=== PATIENT | female | born 1980 | race Caucasian/White ===

== ENCOUNTER 2018-05-18 19:39 | Outpatient (REF) | payer BC, SELFPAY ==
[2018-05-18 21:32] LABS: ALT 40 U/L (12-78); AST 18 U/L (15-37); Albumin 3.5 g/dL (3.4-5.0); Alkaline Phosphatase 92 U/L (46-116); Anion Gap 10.5 mmol/L (3-11); BUN 10 mg/dL (7-18); Bilirubin, Total 0.4 mg/dL (0.2-1.0); CO2 26.5 mmol/L (21.0-32.0); CREATININE 0.66 mg/dL (0.55-1.02); Calcium 9.5 mg/dL (8.5-10.1); Chloride 103 mmol/L (98-107); Glucose 84 mg/dL (70-100); Potassium 4.3 mmol/L (3.5-5.1); Sodium 140 mmol/L (136-145); TSH (W/Ref FT4) 0.63 uIU/mL (0.358-3.74); Total Protein 7.2 g/dL (6.4-8.2)
== END 2018-05-18 19:59 ==
LOC: NCHCN 19:39
PROVIDERS: Visit Provider Nurse Practitioner Family
DX: R60.9 Edema, unspecified (principal)
CPT/HCPCS: 80053; 84443

== ENCOUNTER 2022-12-13 19:57 | Outpatient (REF) | payer OTHER, SELFPAY ==
[2022-12-13 18:53] LABS: Abs Immature Grans 0.03 10^3/uL (0.0-0.06); Absolute Basophil Count 0.06 10^3/uL (0.0-0.2); Absolute Eosinophil Count 0.22 10^3/uL (0.0-0.7); Absolute Monocyte Count 0.64 10^3/uL (0.1-0.8); Absolute Neutrophil Count 5.89 10^3/uL (1.2-6.7); Basophils % 0.6; Eosinophils % 2.1; HCT 39.2 % (36.0-46.0); HGB 12.3 g/dL (11.2-15.7); Immature Grans % 0.3; Lymphocytes % 33.2; MCH 26.8 pg (27.0-33.0); MCHC 31.4 % (32.0-36.0); MCV 85 fL (80-95); MPV 9.5 fL (8.0-11.0); Monocytes % 6.3; Neutrophils % 57.5; Platelet Count 485 10^3/uL (130-400); RBC 4.59 10^6/uL (3.93-5.22); RDW 14.6 % (11.7-14.6); RDW-SD 45.9 fL; WBC 10.24 10^3/uL (4.4-10.8)
[2022-12-13 19:30] LABS: ALT 38 U/L (14-59); AST 28 U/L (15-37); Albumin 3.2 g/dL (3.4-5.0); Alkaline Phosphatase 110 U/L (46-116); Anion Gap 7.1 mmol/L (3-11); BUN 10 mg/dL (7-18); Bilirubin, Total 0.3 mg/dL (0.2-1.0); CO2 27.9 mmol/L (21.0-32.0); CREATININE 0.6 mg/dL (0.55-1.02); Calcium 9.2 mg/dL (8.5-10.1); Chloride 106 mmol/L (98-107); Estimated GFR 115.57 (mL/min/1.73m2); Glucose 75 mg/dL (74-106); Sodium 141 mmol/L (136-145); Total Protein 7.3 g/dL (6.4-8.2)
== END 2022-12-13 19:58 | disposition home or self-care (01) ==
LOC: NCHCN 19:57
PROVIDERS: Visit Provider Nurse Practitioner Family
DX: R51.9 Headache, unspecified (principal)
CPT/HCPCS: 80053; 85025

== ENCOUNTER 2024-03-05 14:50 | Outpatient (REF) | payer OTHER, SELFPAY ==
--- OUTSIDE RECORDS SUMMARY | 2024-03-05 14:53 | XMS_ITS | Clinical Summary ---
Author Organization [facility] Address [address] [place] [address] Care Team Providers Care Mallet Cutter Name Role Phone Gricelda Roth NP Primary Care Provider [phone] Encounters Date Type Department Care Team Description 01/23/2024 Lab Requisition [facility] Pathology & Laboratory Medicine - [address] [address] Leandro Gore MD Encounter for screening for human papillomavirus (HPV); Encounter for gynecological examination (general) (routine) without abnormal findings from Last 3 Months Social History Tobacco Use Types Packs/Day Years Used Date Smoking Tobacco: Never Assessed Sex and Gender Information Value Date Recorded Sex Assigned at Not on file Gender Identity Not on file Sexual Orientation Not on file Plan of Treatment Health Maintenance Due Date Last Done Comments Hepatitis C Screen 1981 Hepatitis B Vaccine (1 of 3 - 19+ 3-dose series) 07/09 COVID-19 Vaccine ( season) 2024 Procedures Procedure Name Priority Date/Time Associated Diagnosis Comments PAP TEST Today 01/23/2024 17:09 EDT Encounter for screening for human papillomavirus (HPV) Encounter for gynecological examination (general) (routine) without abnormal findings HPV DNA DETECTION WITH GENOTYPING, PCR Today 01/23/2024 17:09 EDT Encounter for screening for human papillomavirus (HPV) Encounter for gynecological examination (general) (routine) without abnormal findings from Last 3 Months Results * PAP TEST (01/23/2024 17:09 EDT) Specimens A. Cervix and/or Endocervix , ThinPrep Imaging System with Manual Evaluation 02/05/2024 15:14 [facility] Specimen Adequacy Satisfactory for Evaluation - transformation zone component present 02/05/2024 15:14 [facility] General Categorization Negative for intraepithelial lesion or malignancy 02/05/2024 15:14 [facility] Attestation . 02/05/2024 15:14 [facility] at 1514 Clinical History SEE BELOW 02/05/20 15:14 [facility] Performing Lab [facility] 02/05/2024 15:14 [facility] Scanned Images 02/05/2024 15:14 [facility] HPV High Risk type 16, PCR Negative 02/05/2024 15:14 [facility] HPV High Risk type 18, PCR Negative 02/05/2024 15:14 [facility] HPV Other High Risk Types, PCR Negative The following Other High Risk HPV types were not detected: 31,33, 35, 39, 45, 51, 52, 56, 58, 59, 66 and 68. 02/05/2024 15:14 [facility] Pap Test CERVIX UTERI STRUCTURE / Unknown 01/23/2024 17:09 EDT 01/26/2024 10:24 EDT Leandro Gore MD PATHOLOGY ORDERABLES [facility] [address] [place] [address] * HPV DNA DETECTION WITH GENOTYPING, PCR (01/23/2024 17:09 EDT) HPV High Risk type 16, PCR Negative Negative 02/05/2024 15:14 [facility] HPV High Risk type 18, PCR Negative Negative 02/05/2024 15:14 [facility] HPV other High Risk types, PCR Negative Negative 02/05/2024 15:14 EDT [facility] Comment: The following Other High Risk HPV types were not detected: ??31,33, 35, 39, 45, 51, 52, 56, 58, 59, 66 and 68. Pap Test CERVIX UTERI STRUCTURE / Unknown 01/23/2024 17:09 EDT 02/04/2024 13:09 EDT Leandro Gore MD MICROBIOLOGY - GENER AL ORDERABLES Performing Organization Address City/State/[facility] Co de Phone Number [facility] [address] [place] [address] from Last 3 Months Care Teams Mallet Cutter Relationship Specialty Start Date End Date Gricelda Roth, BREANA [address] [place] [phone] PCP - General 09/08/12
--- OUTSIDE RECORDS SUMMARY | 2024-03-05 14:53 | XMS_ITS | Encounter Summary ---
Author Organization [place] [address] Care Team Providers Care Precision Filer Hand Name Role Phone Geovani Harden [facility] Primary Care Provider [phone] Reason for Referral * Consultation (Routine) - Closed Specialty Diagnoses / Procedures Referred By Jessica romero Referred To Contact Dermatology Diagnoses Nevus, atypical Screening for skin cancer Sherrie Larson APRN [address] [place] [address] [facility] [address] [place] [address] Referral ID Status Reason Start Date Expiration Date V isits Requested Visits Authorized [id number] Closed Consult, Test & Treat PCP Updated and/or Approved 09/03/2022 09/03/2023 6 6 Encounter Details Date Type Department Care Team (Latest Contact Info) Description 09/03/2022 Transcribe Orders eDH Incoming Referrals [phone] Sherrie Larson APRN [address] [place], [place] [id number] Nevus, atypical; Screening for skin cancer Social History Tobacco Use Types Packs/Day Years Used Date Smoking Tobacco: Never Assessed Sex and Gender Information Value Date Recorded Sex Assigned at Not on file Gender Identity Not on file Sexual Orientation Not on file documented as of this encounter Plan of Treatment Scheduled Referrals Name Type Priority Associated Diagnoses Order Schedule Referral to Dermatology Outpatient Referral Routine Nevus, atypical Screening for skin cancer Ordered: 09/03/2022 documented as of this encounter Visit Diagnoses Diagnosis Nevus, atypical Benign neoplasm of skin, site unspecified Screening for skin cancer Screening for malignant neoplasm of the skin documented in this encounter Care Teams Precision Filer Hand Relationship Specialty Start Date End Date Geovani Harden DNP [address] [place] [id number] PCP - General Family Medicine 09/03/22 documented as of this encounter
--- OUTSIDE RECORDS SUMMARY | 2024-03-05 14:53 | XMS_ITS | Continuity of Care Document ---
Author Organization [facility] Address [address] [place] [address] Care Team Providers Care Wheat Buyer Name Role Phone Sherrie Larson Primary Care Physician Leandro Gore Primary Care Physician Encounter [facility] Date(s): 03/03/24 - 03/03/[address] [phone] [place] Encounter Diagnosis Screening mammogram for breast cancer(Discharge Diagnosis) - 03/03/24 Discharge Disposition: Home or Self Care Attending Physician: Leandro Gore MD Admitting Physician: Leandro Gore MD Referring Physician: Leandro Gore MD Allergies, Adverse Reactions, Alerts Substance Criticality Severity Reaction Reaction Severity Status erythromycin Unable to assess criticality Unknown Active Assessment and Plan Future Appointments Immunizations Given and Recorded Vaccine Date Status Refusal Reason influenza virus vaccine, inactivated 04/24/22 Give n influenza virus vaccine, inactivated 01/24/11 Gabriel rded influenza virus vaccine, inactivated 06/25/10 Gabriel rded influenza virus vaccine, inactivated 03/07/08 Gabriel rded influenza virus vaccine, live 03/23/20 Recorded influenza virus vaccine, live 04/24/17 Recorded influenza virus vaccine, live 03/14/16 Recorded Medications escitalopram 10 mg oral tablet 10 mg = 1 tab, Oral, Daily, # 30 tab, 0 Refill(s) Start Date: 11/02/21 Status: Ordered Jaimiess oral tablet 1 tab, Oral, Daily, # 91 tab, 3 Refill(s), Pharmacy: [id number] Start Date: 12/01/23 Status: Ordered Procedures Procedure Date Related Diagnosis Body Site Status Pap Due - 01/2029 1 01/22/24 Co mpleted Colposcopy 2 2004 Completed Tonsillectomy 2004 Completed 1Pap Due - 01/2029 2005 - ABN 10/01/06 - WNL 11/04/07 - WNL 07/20/08 - WNL 06/25/10 - WNL 07/02/12 - Neg/Neg 04/24/17 - Neg/Neg 11/02/21 - Neg/Pos (5 year risk of CIN3+ is 2.25%??) 12/11/22 - Neg/Neg (5 year risk of CIN3+ is 0.90%??) 01/23/24 - Neg/Neg 2in [place] Social History Social History Type Response Tobacco Never tobacco user T obacco Use:. Sex Female Sex Representation Female (finding) Patient Care team information Care Team Personnel Name: Sherrie Larson FOREIGN SERVICE OFFICER Position: No Access Member Role: Primary Care Physician Address: [address] Name: Leandro Gore MD Position: Physician - Women's Health Member Role: Primary Care Physician Address: [address] Care Team Related Persons Name: KATHLEEN FERNANDEZ Name: JOHN PAUL SMITH Insurance Providers Guarantor name: TRUDI FERNANDEZ Health Plan Information #: 1 Payer: [facility] Member Number: [id number] Policy Number: NA Health Plan Information #: 2 Payer: [facility] Member Number: [id number] Policy Number: NA
--- OUTSIDE RECORDS SUMMARY | 2024-03-05 14:53 | XMS_ITS | Continuity of Care Document ---
Author Organization [facility] Address [address] [place] [address] Care Team Providers Care Director Human Services Name Role Phone Fina CLARENCE Geovani Whitney Primary Care Physician [phone] Leandro Gore Primary Care Physician [phone] Encounter [place] Date(s): 12/11/22 - 12/11/[address] [address] Discharge Disposition: Home Allergies, Adverse Reactions, Alerts Substance Reaction Severity Status erythromycin Unknown Active Assessment and Plan Future Appointments Future Scheduled Tests Radiology* MG Mammo Screening Bilateral w/ Efraín 12/11/22 Immunizations Given and Recorded Vaccine Date Status [...] Daily, # 91 tab, 3 Refill(s), Pharmacy: [id number] Start Date: 12/11/22 Status: Ordered Procedures Procedure Date Related Diagnosis Body Site Status Due 10/2022 1, 2, 3, 4 04/23/17 Co mpleted Tonsillectomy 2005 Completed 1Pap Due 04/2022 04/24/2017 Neg/Neg 07/02/2012 Neg/Neg 06/25/2010 WNL 07/20/2008 WNL 11/04/2007 WNL 10/01/2006 WNL 2006 ABN 2Due 10/2026 11/02/2021/ Pos/Neg 4Due 10/2022 11/02/2022 Pos/Neg Social History Social History Type Response Tobacco Never tobacco user T obacco Use:. Sex Female Patient Care team information Care Team Personnel Name: Geovani Reid DNP Position: No Access Member Role: Primary Care Physician Address: Address: [address] [place] [id number] Name: Leandro Gore MD Position: Physician - Women's Health Member Role: Primary Care Physician Address: Address: [address] [place], [place] [address] Care Team Related Persons Name: ALESSANDRO FERNANDEZ Address: Home Name: EMERSON PETTY Address: Home Name: JOHN PAUL SMITH Address: Home [address] [place] [phone]
--- OUTSIDE RECORDS SUMMARY | 2024-03-05 14:53 | XMS_ITS | Continuity of Care Document ---
Author Organization [facility] Address [address] [place] [address] Care Team Providers Care Respiratory Coordinator Name Role Phone Fina CLARENCEGeovani Ailynabe Primary Care Physician [phone] Leandro Gore Primary Care Physician Encounter [place] Date(s): 12/11/22 - 12/11/[address] [address] Discharge Disposition: Home or Self Care Attending Physician: Leandro Gore MD Admitting Physician: Leandro Gore MD Referring Physician: Leandro Gore MD Allergies, Adverse Reactions, Alerts Substance Reaction Severity Status erythromycin Unknown Active Assessment and Plan Future Appointments Diagnostic Tests Pending * PAP Test [facility] 12/11/22 Future Scheduled Tests Radiology* MG Mammo Screening [...] Daily, # 91 tab, 3 Refill(s), Pharmacy: [id number] Start Date: 12/11/22 Status: Ordered Procedures Procedure Date Related Diagnosis Body Site Status Due 10/2022 1, 2, 3, 4 04/23/17 Co mpleted Tonsillectomy 2005 Completed 1Pap Due 04/2022 04/24/2017 Neg/Neg 07/02/2012 Neg/Neg 06/25/2010 WNL 07/20/2008 WNL 11/04/2007 WNL 10/01/2006 WNL 2006 ABN 2Due 10/2026 11/02/2021 3Due 10/2022 11/02/2022 Pos/Neg / Pos/Neg Results Laboratory List Name Date TSH w/ Rflx to Free T4 12/11/22 Most recent to oldest [Reference Range]: 1 TSH [0.358-3.740 mcIntlUnit/mL] 0.809 mc IntlUnit/mL (12/11/22 3:29 PM) Social History Social History Type Response Tobacco Never tobacco user T obacco Use:. Sex Female Patient Care team information Care Team Personnel Name: Geovani Reid DNP Position: No Access Member Role: Primary Care Physician Address: Address: [facility] [place] [address] Name: Leandro Gore MD Position: Physician - Women's Health Member Role: Primary Care Physician Address: Address: [address] [address] [place] Care Team Related Persons Name: ALESSANDRO FERNANDEZ Address: Home Name: EMERSON PETTY Address: Home Name: JOHN PAUL SMITH Address: [address] [phone]
--- OUTSIDE RECORDS SUMMARY | 2024-03-05 14:53 | XMS_ITS | Encounter Summary ---
Author Organization [facility] Address [facility] [place] [address] Care Team Providers Care All Terrain Vehicle Racer Name Role Phone Geovani Harden [facility] Primary Care Provider [phone] Reason for Visit * Reason Comments Skin Check * Consultation (Routine) - Closed Specialty Diagnoses / Procedures Referred By Jessica romero Referred To Contact Dermatology Diagnoses Nevus, atypical Screening for skin cancer Sherrie Larson, GENERATION MECHANIC HELPER [address] [place] [address] [facility] [address] [place] [address] Referral ID Status Reason Start Date Expiration Date V isits Requested Visits Authorized [id number] Closed Consult, Test & Treat PCP Updated and/or Approved 09/03/2022 09/03/2023 6 6 Encounter Details Date Type Department Care Team (Late st Contact Info) Description 04/09/2023 10:40 AM EST Office Visit Dermatology at [facility] [address] [place] [id number] Casimiro Larson MD [facility] [address] [place] [address] Blue nevus; SK (seborrheic keratosis); Telangiectasia; Multiple benign nevi; Neoplasm of unspecified behavior of bone, soft tissue, and skin Social History Tobacco Use Types Packs/Day Years Used Date Smoking Tobacco: Never Assessed Sex and Gender Information Value Date Recorded Sex Assigned at Not on file Gender Identity Not on file Sexual Orientation Not on file documented as of this encounter Progress Notes * Casimiro Larson MD - 04/09/2023 10:40 AM EST Images from the original note were not included. DEPARTMENT OF DERMATOLOGY Medical Dermatology Clinic Note Provider: Casimiro Larson MD Patient's preferred name Drake Preferred contact method for results [x]Phone []myD-H []Letter Detailed phone message OK? Y Are there any other people with whom we may discuss your care? Y - Salbador () Past Medical History Date, location, treatment Melanoma N Dysplastic nevi N SCC N BCC N AKs N UV Exposure & Protection + history of tanning bed use + history of blistering sunburn Other relevant past medical history N Family History Details Melanoma N NMSC Mother may have BCC Other relevant family history N Social History Occupation: Teacher Hobbies: family Other: , 2 children Pre-Procedure Questions Details Allergy to lidocaine, epinephrine, Dermabond, chlorhexidine, or adhesives N Bleeding disorder or blood thinners N Implanted devices (Pacemaker, defibrillator, deep brain stimulator, cochlear implant) N History of Present Illness: Drake Romero is a 42 y.o. Patient is referred to the clinic at the request of Sherrie Larson for full skin exam. -patient is new to us for a baseline skin exam with two lesions her PCP noted on the left face thatshe believes present for years and right side of her nose is flaky. Review of Systems: General: Feeling well. Skin: No other skin concerns. Medications: Reviewed in eD-H Allergies: Reviewed in eD-H Skin Examination: Full skin examination: Patient asked to undress to their comfort level. Verbalized that the provider???s preference is that the patient remove all clothing and that the provider will not examine areas patient elects to keep covered. Patient elects to keep underwear on and have the following examined: scalp, hair, face, ears, neck, chest, axillae, abdomen, back, and upper and lower extremities. Genitalia and buttocks were not examined. Assessment/Plan #. Neoplasm of Uncertain Behavior - on the right mid back, there is a 1.0 cm x 0.5cm irregularly shaped brown macule (Figure 1) DDx: Nevus R/o Atypia - After review of risks and benefits, joint decision made to pursue shave biopsy today. Procedure: Skin biopsy by shave technique Location: right mid back Discussed indications for procedure and expectations including risks and benefits. Verbal consent obtained. Skin prep with alcohol. Local anesthesia with 1% lidocaine, 1/100,000 epinephrine. A sampleof the lesion was removed by shave technique to the level of the dermis and submitted to Pathology.Hemostasis obtained. There were no complications; the patient tolerated the procedure well. The wound was dressed. Post-procedure expectations, wound care and activity restrictions were reviewed. Follow-up based on pathology results. #. Blue Nevus - Violaceous, well-circumscribed, dome-shaped papule on the left nasal tip x1 - Discussed benign nature of lesion and provided reassurance. Will continue to monitor. #. Telangiectasias - Dilated blood vessels on the nose. - Discussed benign nature of lesion(s) and provided reassurance. No treatment necessary at this time. - Briefly discussed the option of treating cosmetically with V-Beam, quoted $450 full face with 2-5treatments needed for optimal outcome. Out of pocket expense noted. - Patient declines cosmetic treatment #. Seborrheic Keratoses - Scattered brown and flesh colored waxy stuck on plaques located on the trunk and extremities - Reassured of benign nature Figure 1 Photo(s) taken and charted with patient's verbal consent. Other: Sun protection discussed (protective clothing and SPF30+ broad-spectrum sunscreen) RTC: 1 year for FSE. Pending pathology. []Note routed to corporate secretary [x]Recall placed in scheduling system []Appointment scheduled at checkout Scribe attestation: Sharyn Hennessy [facility] has performed the documentation for this encounter inthe presence of and acting as a scribe for Casimiro Larson MD. I performed the above scribed service and agree with the accuracy of the documentation in this encounter. Reviewed and signed by: Casimiro Larson MD Dermatology [facility] Patient seen and evaluated with staff fringe knotter: Nelida Loredo MD Department of Dermatology [facility] * Casimiro Larson MD - 04/09/2023 10:40 AM EST Benign biopsy results, discussed with patient. No further treatment recommended. DIAGNOSIS Right mid back, skin shave biopsy: - Compound melanocytic nevus, not identified at the specimen edges in the examined planes of section * Nelida Loredo MD - 04/09/2023 10:40 AM EST I directly supervised the Dermatology resident during this office visit. The resident presented thehistory and physical exam to me. I then saw and examined this patient with the resident. We reviewed the history and pertinent details and I confirmed the physical findings. I agree with the details of the history and physical exam as documented in the resident's note. NELIDA LOREDO MD Staff Physician documented in this encounter Plan of Treatment Not on file documented as of this encounter Procedures Procedure Name Priority Date/Time Associated Diagnosis Comments SPECIMEN TO PATHOLOGY Routine 04/09/2023 10:33 AM EST Neoplasm of unspecified behavior of bone, soft tissue, and skin SURGICAL PATHOLOGY REPORT Routine 04/09/2023 10:30 AM EST documented in this encounter Results * Specimen to Pathology (04/09/2023 10:33 AM EST) AP Specimen 04/09/2023 10:3 3 AM EST 04/09/2023 10:33 AM EST Narrative [facility] - 04/09/2023 10:33 AM EST Specimen requisition ordered. ??Separate Pathology report to follow Nelida Loredo MD PATHOLOGY/CYTOLOGY ORDERABLES [facility] [place] [address] * Surgical Pathology Report (04/09/2023 10:30 AM EST) Final Diagnosis [id number] ? Location: [facility] The signing pathologist has (i) examined the relevant preparation(s) for the specimen(s) and (ii) rendered or confirmed the diagnosis(es). . ?Surgical Pathology DIAGNOSIS Right mid back, skin shave biopsy: - ??Compound melanocytic nevus, ??not identified at the specimen edges in the examined planes of section Electronically signed by: ?Briana Castillo MD Verified: ??04/16/2023 11:07 ??Dermatopatholo gist Performed at: ??-[facility] Dept. of Pathology, [place] [address] Multineedle Shirrer: Eduardo Foster MD, FCAP, ??CLIA Certificate: [id number] SPECIMEN(S) SUBMITTED A - right mid back, skin shave biopsy (_) CLINICAL INFORMATION Nevus rule out atypia-on the right mid back there is a 1 x 0.5 cm irregularly shaped brown macule SPECIMEN PROCESSING A - Labeled/Fixative : Patient demographics, formalin. Quantity/Size: ??Single, 1.0 x 0.6 x 0.1 cm. Tissue Description: Shave of white skin with a 1.0 x 0.3 cm brown macule. Sections/Process ing: Inked, quadrisected and entirely submitted in 1 cassette labeled A1. ??sdy 04/16/2023 11:07 AM EST [facility] SPECIMEN FROM SKIN / Unknown 04/09/2023 10:30 AM EST 04/09/2023 10:30 AM EST Casimiro Larson MD PATHOLOGY/CYTOLOGY O RDERABLES [facility] [address] [place] [address] documented in this encounter Visit Diagnoses Diagnosis Blue nevus SK (seborrheic keratosis) Other seborrheic keratosis Telangiectasia Other and unspecified capillary diseases Multiple benign nevi Benign neoplasm of skin, site unspecified Neoplasm of unspecified behavior of bone, soft tissue, and skin documented in this encounter Care Teams All Terrain Vehicle Racer Relationship Specialty Start Date End Date Geovani Harden DNP [address] [place] [id number] PCP - General Family Medicine 09/03/22 documented as of this encounter
--- OUTSIDE RECORDS SUMMARY | 2024-03-05 14:53 | XMS_ITS | Encounter Summary ---
[place] [address] Care Team Providers Care Railroad Car Painter Name Role Phone Geovani Harden DNP Primary Care Provider [phone] Encounter Details Date Type Department Care Team (Latest Contact Info) Description 04/09/2023 Travel Social History Tobacco Use Types Packs/Day Years Used Date Smoking Tobacco: Never Assessed Sex and Gender Information Value Date Recorded Sex Assigned at Not on file Gender Identity Not on file Sexual Orientation Not on file documented as of this encounter Plan of Treatment Not on file documented as of this encounter Visit Diagnoses Not on filedocumented in this encounter Care Teams Railroad Car Painter Relationship Specialty Start Date End Date Geovani Harden DNP [address] [place] [address] [place] [address] PCP - General Family Medicine 09/03/22 documented as of this encounter
--- OUTSIDE RECORDS SUMMARY | 2024-03-05 14:53 | XMS_ITS | Continuity of Care Document ---
Author Organization [facility] Address [address] [place] [address] Care Team Providers Care Strand Buncher Fine Wire Name Role Phone Sherrie Larson Primary Care Physician [phone] Leandro Gore Primary Care Physician Encounter [place] Date(s): 01/23/24 - 01/23/[address] [phone] [place] Discharge Disposition: Home or Self Care Attending Physician: Leandro Gore MD Admitting Physician: Leandro Gore MD Referring Physician: Leandro Gore MD Allergies, Adverse Reactions, Alerts Substance Criticality Severity Reaction Reaction Severity Status erythromycin Unable to assess criticality Unknown Active Assessment and Plan Future Appointments Diagnostic Tests Pending * PAP Test [facility] 01/23/24 Future Scheduled Tests Radiology* MG Mammo Screening Bilateral w/ Efraín 01/23/24 Immunizations Given and Recorded Vaccine Date Status [...] Daily, # 91 tab, 3 Refill(s), Pharmacy: [id number] Start Date: 12/01/23 Status: Ordered Procedures Procedure Date Related Diagnosis Body Site Status Pap Due - 11/2023 1 11/01/21 Co mpleted Colposcopy 2 2004 Completed Tonsillectomy 2004 Completed 1Pap Due - 11/2023 2005 - ABN 10/01/06 - WNL 11/04/07 - WNL 07/20/08 - WNL 06/25/10 - WNL 07/02/12 - Neg/Neg 04/24/17 - Neg/Neg 11/02/21 - Neg/Pos (5 year risk of CIN3+ is 2.25%??) 12/11/22 - Neg/Neg (5 year risk of CIN3+ is 0.90%??) 2in Lora Social History Social History Type Response Tobacco Never tobacco user T obacco Use:. Sex Female Sex Representation Female (finding) Patient Care team information Care Team Personnel Name: Sherrie Larson SECURITY SOLUTIONS ARCHITECT Position: No Access Member Role: Primary Care Physician Address: [address] Name: Leandro Gore MD Position: Physician - Women's Health Member Role: Primary Care Physician Address: [address] Care Team Related Persons Name: KATHLEEN FERNANDEZ Name: JOHN PAUL SMITH Insurance Providers Guarantor name: TRUDI FERNANDEZ Health Plan Information #: 1 Payer: [facility] Member Number: [id number] Policy Number: NA Health Plan Information #: 2 Payer: [facility] Member Number: [id number] Policy Number: NA
--- OUTSIDE RECORDS SUMMARY | 2024-03-05 14:53 | XMS_ITS | Clinical Summary ---
[facility] Organization [facility] [place] [address] Care Team Providers Care Automobile Club Membership Sales Agent Name Role Phone Geovani Harden DNP Primary Care Provider Medications No known medications Active Problems No known active problems Social History Tobacco Use Types Packs/Day Years Used Date Smoking Tobacco: Never Assessed Sex and Gender Information Value Date Recorded Sex Assigned at Not on file Gender Identity Not on file Sexual Orientation Not on file Plan of Treatment Health Maintenance Due Date Last Done Comments HIV screen 1999 Hepatitis C Screening 1999 Hepatitis B vaccine (0-59 yrs) (1) 2000 Tetanus/Diphtheria/Pertussis Vaccines (1 - Tdap) 07/09 HPV test 2011 PAP Smear 2011 Breast Cancer Share Decision Needed 2021 Breast Cancer screening 2021 Covid-19 Vaccine (1 - 24 season) 2024 Influenza (Flu) vaccine (1 o f 1 - Influenza standard series) 01/18/2024 Care Teams Automobile Club Membership Sales Agent Relationship Specialty Start Date End Date Geovani Harden DNP [address] [place], [place] [address] PCP - General Family Medicine 09/03/22
--- OUTSIDE RECORDS SUMMARY | 2024-03-05 14:53 | XMS_ITS | Continuity of Care Document ---
Author Organization [facility] Address [address] [place] [address] Care Team Providers Care Campaign Associate Name Role Phone Sherrie Larson Primary Care Physician [phone] Leandro Gore Primary Care Physician [phone] Encounter [place] Date(s): 01/26/24 - 01/26/[address] [phone] [place] Discharge Disposition: Home Allergies, Adverse Reactions, Alerts Substance Criticality Severity [...] # 91 tab, 3 Refill(s), Pharmacy: [id number] Start Date: 12/01/23 Status: Ordered Procedures Procedure Date Related Diagnosis Body Site Status Pap Due - 11/2023 1 11/01/21 Co mpleted Colposcopy 2 2004 Completed Tonsillectomy 2004 Completed 1Pap Due - 11/2023 2006 - ABN 10/01/06 - WNL 11/04/07 - [...] information Care Team Personnel Name: Sherrie Larson PEANUT BUTTER MAKER Position: No Access Member Role: Primary Care Physician Address: [address] Name: Leandro Gore MD Position: Physician - Women's Health Member Role: Primary Care Physician Address: [address] Care Team Related Persons Name: KATHLEEN FERNANDEZ Name: JOHN PAUL SMITH Insurance Providers Guarantor name: TRUDI FERNANDEZ Health Plan Information #: 1 Payer: [facility] SECURE HMO Member Number: NA Policy Number: NA
--- OUTSIDE RECORDS SUMMARY | 2024-03-05 14:53 | XMS_ITS | Continuity of Care Document ---
Author Organization [facility] Address [address] [place] [address] Care Team Providers Care Flotation Tender Name Role Phone Sherrie Larson Primary Care Physician [phone] Leandro Gore Primary Care Physician Encounter [place] Date(s): 01/01/23 - 01/01/[address] [address] Encounter Diagnosis Screening mammogram for breast cancer(Discharge Diagnosis) - 01/01/23 Discharge Disposition: Home or Self Care Attending [...] Daily, # 91 tab, 3 Refill(s), Pharmacy: [id number] Start Date: 12/11/22 Status: Ordered Procedures Procedure Date Related Diagnosis Body Site Status Due 11/2027 1, 2, 3, 4, 5 04/23/17 Completed Tonsillectomy 2004 Completed 1Pap Due 04/2022 04/24/2017 Neg/Neg 07/02/2012 Neg/Neg 06/25/2010 WNL 07/20/2008 WNL 11/04/2007 WNL 10/01/2006 WNL 2006 ABN 2Due 10/2026 11/02/2021 3Due 10/2022 11/02/2022 Pos/Neg 4Due 11/2027 12/11/2022 Neg/Neg Pos/Neg Social History Social History Type Response Tobacco Never tobacco user T obacco Use:. Sex Female Patient Care team information Care Team Personnel Name: Sherrie Larson NP Position: No Access Member Role: Primary Care Physician Address: Address: [address] [place] [address]- [place] Name: Leandro Gore MD Position: Physician - Women's Health Member Role: Primary Care Physician Address: Address: [address] [place] [address]- [place] Care Team Related Persons Name: KATHLEEN FERNANDEZ Address: Home Name: JOHN PAUL SMITH Address: Home [address] [place] [phone]
--- OUTSIDE RECORDS SUMMARY | 2024-03-05 14:54 | XMS_ITS | Encounter Summary ---
Author Organization [facility] Address [address] [place] [address] Care Team Providers Care Valve Steamer Name Role Phone Unavailable Primary Care Provider Unavailabl e Encounter Details Date Type Department Care Team (Late st Contact Info) Description 07/16/2007 9:50 EST Hospital Encounter [facility] [address] [place] [address] Garland Vasquez MD PhD Social History Tobacco Use Types Packs/Day Years [...]
--- OUTSIDE RECORDS SUMMARY | 2024-03-05 14:54 | XMS_ITS | Encounter Summary ---
Author Organization [facility] Address [address] [place] [address] Care Team Providers Care Hinging Machine Operator Name Role Phone Gricelda Roth FIG CAPRIFIER Primary Care Provider [phone] Encounter Details Date Type Department Care Team (Latest Contact Info) Description 12/11/2022 Lab Requisition [facility] Pathology & Laboratory Medicine - [address] [address] Leandro Gore MD [address] [place] [address] [address] [place], [place] [phone] Encounter for screening for human papillomavirus (HPV); Cervical high risk human papillomavirus (HPV) DNA test positive; Encounter for gynecological examination (general) (routine) without abnormal findings Social History Tobacco Use Types Packs/Day Years Used Date Smoking Tobacco: Never Assessed Sex and Gender Information Value Date Recorded Sex Assigned at Not on file Gender Identity Not on file Sexual Orientation Not on file documented as of this encounter Plan of Treatment Not on file documented as of this encounter Procedures Procedure Name Priority Date/Time Associated Diagnosis Comments PAP TEST Today 12/11/2022 16:54 EDT HPV DNA DETECTION WITH GENOTYPING, PCR Today 12/11/2022 16:54 EDT documented in this encounter Results * HUMAN PAPILLOMAVIRUS (HPV) DETECTION-HIGH RISK TYPES (12/11/2022 16:54 EDT) HPV other High Risk types, PCR Negative Negative 12/20/2022 15:19 EDT [facility] Comment:No E6 or E7 mRNA is detected from HPV types 16,18,31,33,35,39,45,51,52,56,58,59,66, and 68 by third rail installer mediated amplification. Papanicolaou smear specimen (specimen) CERVIX UTERI STRUCTURE / Unknown 12/11/2022 16:54 EDT 12/18/2022 13:01 EDT Leandro Gore MD MICROBIOLOGY - GENER AL ORDERABLES [facility] [address] [place] [id number] * PAP TEST (12/11/2022 16:54 EDT) Specimens A. Cervix and/or Endocervix , ThinPrep Imaging System with Manual Evaluation 12/20/2022 15:19 [facility] Specimen Adequacy Satisfactory for Evaluation - transformation zone component present 12/20/2022 15:19 [facility] General Categorization Negative for intraepithelial lesion or malignancy 12/20/2022 15:19 [facility] Attestation . 12/20/2022 15:19 [facility] at 1519 Clinical History SEE BELOW 12/21/19 23 15:19 [facility] HPV The result for the Human Papillomavirus (HPV) Detection-High Risk Types is Negative. No E6 or E7 mRNA is detected from HPV types 16,18,31,33,35,39 ,45,51,52,56,58,5 9,66, and 68 by third rail installer mediated amplification.Janie ting was performed on specimen [id number] and was resulted on 12/20/2022 1519 EDT by ANDRES, LAB INSTRUMENT RESULTS IN 12/20/2022 15:19 T [facility] Performing Lab [facility] 12/20/2022 15:19 [facility] Scanned Images 12/20/2022 15:19 [facility] Papanicolaou smear specimen (specimen) CERVIX UTERI STRUCTURE / Unknown 12/11/2022 16:54 EDT 12/13/2022 11:13 EDT Leandro Gore MD PATHOLOGY ORDERABLES [facility] [address] [place] [address] documented in this encounter Visit Diagnoses Diagnosis Encounter for screening for human papillomavirus (HPV) Special screening examination for human papillomavirus (HPV) Cervical high risk human papillomavirus (HPV) DNA test positive Encounter for gynecological examination (general) (routine) without abnormal findings documented in this encounter Care Teams Hinging Machine Operator Relationship Specialty Start Date End Date Gricelda Roth NP [address] [place] [phone] PCP - General 09/08/12 documented as of this encounter
--- OUTSIDE RECORDS SUMMARY | 2024-03-05 14:54 | XMS_ITS | Encounter Summary ---
Author Organization [facility] Address [address] [place] [address] Care Team Providers Care Manager Process Improvement Name Role Phone Unavailable Primary Care Provider Unavailabl e Encounter Details Date Type Department Care Team (Late st Contact Info) Description 07/02/2012 Results Only [facility] Laboratory Services - [facility] ([facility] [place] [address] [place], [place] [phone] Gordy Gore MD [address] [place] [address] [address] [place] [address] Social History Tobacco Use Types Packs/Day Years Used Date Smoking Tobacco: Never Assessed Sex and Gender Information Value Date Recorded Sex Assigned at Not on file Gender Identity Not on file Sexual Orientation Not on file documented as of this encounter Plan of Treatment Not on file documented as of this encounter Procedures Procedure Name Priority Date/Time Associated Diagnosis Comments PAP TEST- RESULT ONLY Routine 07/02/2012 0:00 EST documented in this encounter Results * PAP TEST- RESULT ONLY (07/02/2012 0:00 EST) Pathology Report: CYTOPATHOLOGY REPORT Reports generated via electronic interface contain original data; however they are lacking the format of the original report. Caution should be taken when reading/interpreti ng unformatted reports. Name: ? TRUDI SMITH ? Accession #: ? [id number] ? : ? 1980 (Age: 31) ??F ?Collect Date: ? 07/02/2012 ? Location: ? [facility] ? Receive Date: ? 07/06/2012 ? Provider: GORDY GORE MD Copy to: ? Final Report SPECIMEN ADEQUACY ? Satisfactory for Evaluation - transformation zone component present GENERAL CATEGORIZATION ? Negative for Intraepithelial Lesion or Malignancy ?? Hormonal/Contracep tive status: Yes: mirena Other: Additional clinical information: paps WNL 06/25, 10/24, 07/25, 06/29 Specimen/Source: ??Pap Test, Cervix/Endocervix, ThinPrep Imaging System with manual evaluation Document reviewed and electronically signed by: ? Mercedes Buchanan, CT(ASCP)(IAC) ? Report ??Date: 07/08/2012 10:30 HPV with Pap Test ? Date Ordered: ? 07/10/2012 ? Status: ?? Signed Out ?Date Complete: ? 07/14/2012 ? By: ??System Interface ? Date Reported: ? 07/14/2012 ? Interpretation RESULT: Negative for HPV. No E6 or E7 mRNA is detected from HPV types 16,18,31,33,35, 39,45,51,52,56,58, 59,66, and 68 by needle valve operator mediated amplification. Comments Document reviewed and electronically signed by: ? System Interface ? Report date: 07/14/2012 By the signature above, the attending physician certifies that he/she has personally conducted a gross and/or microscopic examination of the described specimens and rendered or confirmed the above diagnosis. End of Report JAMES KUMAR 07/02/2012 07/06/2012 Gordy Gore MD PATHOLOGY ORDERABLES Performing Organization Address City/State/[facility] Co de Phone Number JAMES KUMAR [address] [place] [address] documented in this encounter Visit Diagnoses Not on filedocumented in this encounter
--- OUTSIDE RECORDS SUMMARY | 2024-03-05 14:54 | XMS_ITS | Encounter Summary ---
Author Organization [facility] Address [address] [place] [address] Care Team Providers Care [employer] Assistant Manager Name Role Phone Gricelda Roth ANIMAL STUNNER Primary Care Provider [phone] Encounter Details Date Type Department Care Team (Late st Contact Info) Description 09/10/2012 Phlebotomy Only [address] [address] College Sports Assistant, Outpatient Social History Tobacco Use Types Packs/Day Years Used Date Smoking Tobacco: Never Assessed Sex and Gender Information Value Date Recorded Sex Assigned at Not on file Gender Identity Not on file Sexual Orientation Not on file documented as of this encounter Plan of Treatment Not on file documented as of this encounter Visit Diagnoses Not on filedocumented in this encounter Care Teams [employer] Assistant Manager Relationship Specialty Start Date End Date Gricelda Roth, ANIMAL STUNNER [address] [place] [phone] PCP - General 09/08/12 documented as of this encounter
--- OUTSIDE RECORDS SUMMARY | 2024-03-05 14:54 | XMS_ITS | Encounter Summary ---
Author Organization [facility] Address [address] [place] [address] Care Team Providers Care Warehouse Delivery Driver Name Role Phone Marco John MD Primary Care Provider [phone] Encounter Details Date Type Department Care Team (Late st Contact Info) Description 09/02/2012 Results Only Imaging [facility] [phone] Tony Oconnor MD [address] [facility] [address] [place] [address] Social History Tobacco Use Types Packs/Day Years Used Date Smoking Tobacco: Never Assessed Sex and Gender Information Value Date Recorded Sex Assigned at Not on file Gender Identity Not on file Sexual Orientation Not on file documented as of this encounter Plan of Treatment Not on file documented as of this encounter Procedures Procedure Name Priority Date/Time Associated Diagnosis Comments MULTIFOLD OPERATOR US EXAM 09/10/2012 8:22 EDT documented in this encounter Results * MULTIFOLD OPERATOR US EXAM (09/10/2012 8:22 EDT) Anatomical Region Laterality Modality Other 09/10/2012 8:22 EDT 09/10/2012 8:56 EDT Narrative 09/10/2012 8:56 EDT Indication: outside monitoringundergoing gestational carrier. Gynecological Ultrasonography: Uterus: anteverted. Endometrium: endometrium clearly visualized. Trilaminar. Endometrium thickness total: 9.4 mm. Right Ovary: normal. Left Ovary: normal. Cul de Sac / Pouch of Ru: no free fluid visible. Report Summary: Overall impression: Ultrasound Performed:Limited transvaginal follicular ultrasound-80757 1) EMT= 9.4 mm 2) normal adnexa. Follow- up: as per outside protocol. Addendum Begins Indication: outside monitoringundergoing gestational carrier. Gynecological Ultrasonography: Uterus: anteverted. Endometrium: endometrium clearly visualized. Trilaminar. Endometrium thickness total: 9.4 mm. Right Ovary: normal. Left Ovary: normal. Cul de Sac / Pouch of Ru: no free fluid visible. Report Summary: Overall impression: Ultrasound Performed:Limited transvaginal follicular ultrasound-79603 1) EMT= 9.4 mm 2) normal adnexa. Follow- up: as per outside protocol. Addendum Ends Procedure Note 09/10/2012 Indication: outside monitoringundergoing gestational carrier. Gynecological Ultrasonography: Uterus: anteverted. Endometrium: endometrium clearly visualized. Trilaminar. Endometrium thickness total: 9.4 mm. Right Ovary: normal. Left Ovary: normal. Cul de Sac / Pouch of Ru: no free fluid visible. Report Summary: Overall impression: Ultrasound Performed:Limited transvaginal follicular ultrasound-19892 1) EMT= 9.4 mm 2) normal adnexa. Follow- up: as per outside protocol. Addendum Begins Indication: outside monitoringundergoing gestational carrier. Gynecological Ultrasonography: Uterus: anteverted. Endometrium: endometrium clearly visualized. Trilaminar. Endometrium thickness total: 9.4 mm. Right Ovary: normal. Left Ovary: normal. Cul de Sac / Pouch of Ru: no free fluid visible. Report Summary: Overall impression: Ultrasound Performed:Limited transvaginal follicular ultrasound-50912 1) EMT= 9.4 mm 2) normal adnexa. Follow- up: as per outside protocol. Addendum Ends Tony Oconnor MD IMG US MULTIFOLD OPERATOR ORDERABLE S documented in this encounter Visit Diagnoses Not on filedocumented in this encounter Care Teams Warehouse Delivery Driver Relationship Specialty Start Date End Date Marco John MD [facility] [phone] PCP - General 09/01/12 09/07/12 documented as of this encounter
--- OUTSIDE RECORDS SUMMARY | 2024-03-05 14:54 | XMS_ITS | Encounter Summary ---
Author Organization [facility] Address [address] [place] [address] Care Team Providers Care Gum Worker Name Role Phone Gricelda Roth MUSCULOSKELETAL PHYSIOTHERAPIST Primary Care Provider [phone] Encounter Details Date Type Department Care Team (Late st Contact Info) Description 04/24/2017 Results Only [facility] [phone] Gordy Gore MD [address] [place] [address] [address] [place] [address] Social History Tobacco Use Types [...] Diagnosis Comments PAP TEST- RESULT ONLY Routine 04/24/2017 0:00 EST documented in this encounter Results * PAP TEST- RESULT ONLY (04/24/2017 0:00 EST) Pathology Report: CYTOPATHOLOGY REPORT Reports generated via electronic interface contain original data; however they are lacking the format of the original report. Caution should be taken when reading/interpreti ng unformatted reports. Name: ? TRUDI FERNANDEZ ? Accession #: ? [id number] ? : ? 1980 (Age: 36) ??F ?Collect Date: ? 04/24/2017 ? Location: ? [facility] ? Receive Date: ? 04/29/2017 ? Provider: GORDY GORE MD Copy to: ? Final Report SPECIMEN ADEQUACY ? Satisfactory for Evaluation - transformation zone component present GENERAL CATEGORIZATION ? Negative for Intraepithelial Lesion or Malignancy ?? Hormonal/Contracep tive status: Oral contraceptives Other: Previous NIL Pap(s): 09/22 10/24,07/25 06/29 07/01 Specimen/Source: ??Pap Test, Cervix, ThinPrep Imaging System with manual evaluation Document reviewed and electronically signed by: ? Mercedes Buchanan, CT(ASCP)(IAC) ? Report ??Date: 05/07/2017 12:09 HPV with Pap Test ? Date Ordered: ? 05/07/2017 ? Status: ?? Signed Out ?Date Complete: ? 05/08/2017 ? By: ??System Interface ? Date Reported: ? 05/08/2017 ? Interpretation RESULT: Negative for HPV. No E6 or E7 mRNA is detected from HPV types 16,18,31,33,35, 39,45,51,52,56,58, 59,66, and 68 by online marketing director mediated amplification. Comments Document reviewed and electronically signed by: ? System Interface ? Report date: 05/08/2017 By the signature above, the attending physician certifies that he/she has personally conducted a gross and/or microscopic examination of the described specimens and rendered or confirmed the above diagnosis. End of Report [facility] 04/24/2017 04/29/2017 Gordy Gore MD PATHOLOGY ORDERABLES [facility] [address] [place] [address] documented in this encounter Visit Diagnoses Not on filedocumented in this encounter Care Teams Gum Worker Relationship Specialty Start Date End Date Gricelda Roth, MUSCULOSKELETAL PHYSIOTHERAPIST [address] [place] [phone] PCP - General 09/08/12 documented as of this encounter
--- OUTSIDE RECORDS SUMMARY | 2024-03-05 14:54 | XMS_ITS | Encounter Summary ---
Author Organization [facility] Address [address] [place] [address] Care Team Providers Care Linux Kernel Engineer Name Role Phone Gricelda Roth SUPERVISOR SCRAP PREPARATION Primary Care Provider [phone] Encounter Details Date Type Department Care Team (Late st Contact Info) Description 09/10/2012 Orders Only Non [facility] Tony Oconnor MD [address] [phone] Social History Tobacco Use Types Packs/Day Years Used Date Smoking Tobacco: Never Assessed Sex and Gender Information Value Date Recorded Sex Assigned at Not on file Gender Identity Not on file Sexual Orientation Not on file documented as of this encounter Plan of Treatment Not on file documented as of this encounter Visit Diagnoses Not on filedocumented in this encounter Care Teams Linux Kernel Engineer Relationship Specialty Start Date End Date Gricelda Roth NP [address] [place] [phone] PCP - General 09/08/12 documented as of this encounter
--- OUTSIDE RECORDS SUMMARY | 2024-03-05 14:54 | XMS_ITS | Referral Summary ---
Author Organization [facility] Address [address] [place] [address] Care Team Providers Care Rental Management Trainee Name Role Phone Gricelda Roth NP Primary Care Provider [phone] Encounters Date Type Department Care Team Description 01/23/2024 Lab Requisition [facility] Pathology & Laboratory Medicine - [address] [address] Leandro Gore MD Encounter for screening for human papillomavirus (HPV); Encounter for gynecological examination (general) (routine) without abnormal findings from Last 3 Months Social History Tobacco Use Types Packs/Day Years Used Date Smoking Tobacco: Never Assessed Sex and Gender Information Value Date Recorded Sex Assigned at Not on file Gender Identity Not on file Sexual Orientation Not on file Plan of Treatment Not on file Procedures Procedure Name Priority Date/Time Associated Diagnosis [...] Imaging System with Manual Evaluation 02/05/2024 15:14 EDT [facility] Specimen Adequacy Satisfactory for Evaluation - transformation zone component present 02/05/2024 15:14 [facility] General Categorization Negative for intraepithelial lesion or malignancy 02/05/2024 15:14 [facility] Attestation . 02/05/2024 15:14 [facility] at 1514 Clinical History SEE BELOW 02/05/20 15:14 T [facility] Performing Lab [facility] 02/05/2024 15:14 T [facility] Scanned Images 02/05/2024 15:14 [facility] HPV High Risk type 16, PCR Negative 02/05/2024 15:14 T [facility] HPV High Risk type 18, PCR Negative 02/05/2024 15:14 [facility] HPV Other High Risk Types, PCR Negative The following Other High Risk HPV types were not detected: 31,33, 35, 39, 45, 51, 52, 56, 58, 59, 66 and 68. 02/05/2024 15:14 T [facility] Pap Test CERVIX UTERI STRUCTURE / Unknown 01/23/2024 17:09 EDT 01/26/2024 10:24 EDT Leandro Gore MD PATHOLOGY ORDERABLES [facility] [address] [place] [address] * HPV DNA DETECTION WITH GENOTYPING, PCR (01/23/2024 17:09 EDT) HPV High Risk type 16, PCR Negative Negative 02/05/2024 15:14 EDT [facility] HPV High Risk type 18, PCR Negative Negative 02/05/2024 15:14 T [facility] HPV other High Risk types, PCR Negative Negative 02/05/2024 15:14 T [facility] Comment: The following Other High Risk HPV types were not detected: ??31,33, 35, 39, 45, 51, 52, 56, 58, 59, 66 and 68. Pap Test CERVIX UTERI STRUCTURE / Unknown 01/23/2024 17:09 EDT 02/04/2024 13:09 EDT Leandro Gore MD MICROBIOLOGY - GENER AL ORDERABLES [facility] [address] [place] [address] from Last 3 Months Care Teams Rental Management Trainee Relationship Specialty Start Date End Date Gricelda Roth, NEGATIVE RETOUCHER [address] [place] [phone] PCP - General 09/08/12
--- OUTSIDE RECORDS SUMMARY | 2024-03-05 14:54 | XMS_ITS | Encounter Summary ---
Author Organization [facility] Address [address] [place] [address] Care Team Providers Care Steam Pressure Chamber Operator Name Role Phone Gricelda Roth RISK LEAD Primary Care Provider [phone] Encounter Details Date Type Department Care Team (Late st Contact Info) Description 09/10/2012 Orders Only Non [facility] Anc[facility] Tony Oconnor MD [address] [address] Social History Tobacco Use Types [...] on filedocumented in this encounter Care Teams Steam Pressure Chamber Operator Relationship Specialty Start Date End Date Gricelda Roth NP [address] [place] [phone] PCP - General 09/08/12 documented as of this encounter
--- OUTSIDE RECORDS SUMMARY | 2024-03-05 14:54 | XMS_ITS | Encounter Summary ---
Author Organization [facility] Address [address] [place] [address] Care Team Providers Care Specification Consultant Name Role Phone Gricelda Roth OFFICE CLERK Primary Care Provider [phone] Encounter Details Date Type Department Care Team (Latest Contact Info) Description 11/02/2021 Lab Requisition [facility] Pathology & Laboratory Medicine - [address] [address] Leandro Gore MD [address] [place] [address] [address] [place], [place] [phone] Encounter for gynecological examination (general) (routine) without [...] Date/Time Associated Diagnosis Comments PAP TEST Today 11/02/2021 16:59 EDT HPV GENOTYPES 16 AND 18/45 Today 11/02/2021 16:59 EDT HPV DNA DETECTION WITH GENOTYPING, PCR Today 11/02/2021 16:59 EDT documented in this encounter Results * HPV GENOTYPES 16 AND 18/45 (11/02/2021 16:59 EDT) HPV High Risk type 16, PCR Negative Negative 11/15/2021 14:29 EDT [facility] HPV18/45 RNA (HPV18/45) Negative Negative 11/15/2021 14:29 EDT [facility] Papanicolaou smear specimen (specimen) CERVIX UTERI STRUCTURE / Unknown 11/02/2021 16:59 EDT 11/08/2021 11:35 EDT Leandro Gore MD MICROBIOLOGY - GENER AL ORDERABLES Performing Organization Address [facility] de Phone Number [facility] [address] [place] [address] * (ABNORMAL) HUMAN PAPILLOMAVIRUS (HPV) DETECTION-HIGH RISK TYPES (11/02/2021 16:59 EDT) HPV other High Risk types, PCR Positive( A) Negative 11/15/2021 14:29 EDT [facility] Comment:E6 OR E7 mRNA from o ne or more types of HPV types 16,18,31,33,35,39,45,51,52,56,58,59,66, and 68 is detected by clinical data abstractor mediated amplification. High and intermediate risk HPV types are associated with most squamous intraepithelial lesions and cervical cancers. Papanicolaou smear specimen (specimen) CERVIX UTERI STRUCTURE / Unknown 11/02/2021 16:59 EDT 11/08/2021 11:35 EDT Leandro Gore MD MICROBIOLOGY - GENER AL ORDERABLES Performing Organization Address [facility] de Phone Number [facility] [address] [place] [address] * PAP TEST (11/02/2021 16:59 EDT) Specimens A. Cervix and/or Endocervix , ThinPrep Imaging System with Manual Evaluation 11/15/2021 14:29 EDT [facility] Specimen Adequacy Satisfactory for Evaluation - transformation zone component present 11/15/2021 14:29 EDT [facility] General Categorization Negative for intraepithelial lesion or malignancy 11/15/2021 14:29 EDT [facility] Attestation . 11/15/2021 14:29 EDT [facility] at 1429 Clinical History See below 11/16/19 14:29 EDT [facility] HPV The result for the Human Papillomavirus (HPV) Detection-High Risk Types is Positive . E6 OR E7 mRNA from one or more types of HPV types 16,18,31,33,35,39 ,45,51,52,56,58,5 9,66, and 68 is detected by clinical data abstractor mediated amplification. High and intermediate risk HPV types are associated with most squamous intraepithelial lesions and cervical cancers. Testing was performed on specimen [id number] and was resulted on 11/10/2021 0944 EDT by ANDRES, LAB INSTRUMENT RESULTS IN 11/15/2021 14:29 EDT [facility] Genotyping 16 & 18/45 The results for the HPV Genotypes 16 and 18/45 are Negative for the HPV16 RNA and Negative for the HPV18/45 RNA (HPV18/45). Testing was performed on specimen [id number] and was resulted on 11/15/2021 1425 EDT by ANDRES, LAB INSTRUMENT RESULTS IN 11/15/2021 14:29 EDT [facility] Performing Lab [facility] 11/15/2021 14:29 EDT [facility] Scanned Images 11/15/2021 14:29 EDT [facility] Papanicolaou smear specimen (specimen) CERVIX UTERI STRUCTURE / Unknown 11/02/2021 16:59 EDT 11/05/2021 15:16 EDT Leandro Gore MD PATHOLOGY ORDERABLES [facility] [address] [place] [address] documented in this encounter Visit Diagnoses Diagnosis Encounter for gynecological examination (general) (routine) without abnormal findings documented in this encounter Care Teams Specification Consultant Relationship Specialty Start Date End Date Gricelda Roth NP [address] [place] [phone] PCP - General 09/08/12 documented as of this encounter
--- OUTSIDE RECORDS SUMMARY | 2024-03-05 14:54 | XMS_ITS | Encounter Summary ---
Author Organization [facility] Address [address] [place] [address] Care Team Providers Care Mail List Processor Name Role Phone Gricelda Roth GENERATING PLANT SUPERINTENDENT Primary Care Provider [phone] Encounter Details Date Type Department Care Team (Latest Contact Info) Description 01/23/2024 Lab Requisition [facility] Pathology & Laboratory Medicine - [address] [address] Leandro Gore MD [address] [place] [address] [address] [place], [place] [phone] Encounter for screening for human papillomavirus (HPV); [...] without abnormal findings documented in this encounter Results * HPV DNA DETECTION WITH GENOTYPING, PCR (01/23/2024 17:09 EDT) HPV High Risk type 16, PCR Negative Negative 02/05/2024 15:14 [facility] HPV High Risk type 18, PCR Negative Negative 02/05/2024 15:14 [facility] HPV other High Risk types, PCR Negative Negative 02/05/2024 15:14 [facility] Comment: The following Other High Risk HPV types were not detected: ??31,33, 35, 39, 45, 51, 52, 56, 58, 59, 66 and 68. Pap Test CERVIX UTERI STRUCTURE / Unknown 01/23/2024 17:09 EDT 02/04/2024 13:09 EDT Leandro Gore MD MICROBIOLOGY - GENER AL ORDERABLES [facility] [address] [place] [phone] * PAP TEST (01/23/2024 17:09 EDT) Specimens A. Cervix and/or Endocervix , ThinPrep Imaging System with Manual Evaluation 02/05/2024 15:14 [facility] Specimen Adequacy Satisfactory for Evaluation - transformation zone component present 02/05/2024 15:14 [facility] General Categorization Negative for intraepithelial lesion or malignancy 02/05/2024 15:14 [facility] Attestation . 02/05/2024 15:14 [facility] at 1514 Clinical History SEE BELOW 02/05/20 15:14 [facility] Performing Lab [facility] 02/05/2024 15:14 [facility] Scanned Images 02/05/2024 15:14 [facility] HPV High Risk type 16, PCR Negative 02/05/2024 15:14 [facility] HPV High Risk type 18, PCR Negative 02/05/2024 15:14 [facility] HPV Other High Risk Types, PCR Negative The following Other High Risk HPV types were not detected: 31,33, 35, 39, 45, 51, 52, 56, 58, 59, 66 and 68. 02/05/2024 15:14 EDT [facility] Pap Test CERVIX UTERI STRUCTURE / Unknown 01/23/2024 17:09 EDT 01/26/2024 10:24 EDT Leandro Gore MD PATHOLOGY ORDERABLES [facility] [address] [place], [place] [phone] documented in this encounter Visit Diagnoses Diagnosis Encounter for screening for human papillomavirus (HPV) Special screening examination for human papillomavirus (HPV) Encounter for gynecological examination (general) (routine) without abnormal findings documented in this encounter Care Teams Mail List Processor Relationship Specialty Start Date End Date Gricelda Roth NP [address] [place] [phone] PCP - General 09/08/12 documented as of this encounter
--- OUTSIDE RECORDS SUMMARY | 2024-03-05 14:54 | XMS_ITS | Encounter Summary ---
Author Organization [facility] Address [address] [place] [address] Care Team Providers Care Home Health Manager Name Role Phone Gricelda Roth FARM EQUIPMENT ASSEMBLER Primary Care Provider [phone] Encounter Details Date Type Department Care Team (Late st Contact Info) Description 09/10/2012 Phlebotomy Only [address] [address] Barge Loader, Outpatient Social History Tobacco Use Types Packs/Day Years Used Date Smoking Tobacco: Never Assessed Sex and Gender Information Value Date Recorded Sex Assigned at Not on file Gender Identity Not on file Sexual Orientation Not on file documented as of this encounter Plan of Treatment Not on file documented as of this encounter Visit Diagnoses Not on filedocumented in this encounter Care Teams Home Health Manager Relationship Specialty Start Date End Date Gricelda Roth, FARM EQUIPMENT ASSEMBLER [address] [place] [address] [phone] PCP - General 09/08/12 documented as of this encounter
--- OUTSIDE RECORDS SUMMARY | 2024-03-05 14:54 | XMS_ITS | Encounter Summary ---
Author Organization [facility] Address [address] [place] [address] Care Team Providers Care Tin Stacker Name Role Phone Unavailable Primary Care Provider Unavailabl e Encounter Details Date Type Department Care Team (Late st Contact Info) Description 11/04/2007 Results Only [facility] - Maple conversion [address] [place] [address] Gordy Gore MD [address] [place] [address] [address] [place] [address] Social History Tobacco Use Types Packs/Day Years Used Date Smoking Tobacco: Never Assessed Sex and Gender Information Value Date Recorded Sex Assigned at Not on file Gender Identity Not on file Sexual Orientation Not on file documented as of this encounter Plan of Treatment Not on file documented as of this encounter Procedures Procedure Name Priority Date/Time Associated Diagnosis Comments CYTOPATHOLOGY Routine 11/04/2007 0:00 EDT documented in this encounter Results * CYTOPATHOLOGY (11/04/2007 0:00 EDT) Pathology Report: CYTOPATHOLOGY REPORT Reports generated via electronic interface contain original data; however they are lacking the format of the original report. Caution should be taken when reading/interpreti ng unformatted reports. Name: ? TRUDI SMITH ? Accession #: ? [id number] : ? 1980 (Age: 27) ??F ?Collect Date: ? 11/04/2007 Location: ? [facility] ? Receive Date: ? 11/06/2007 Provider: ?GORDY GORE MD Copy to: ? Specimen/Source: ?ThinPrep Pap Test, Cervix/Endocervix, processed on Mandic ThinPrep Imaging System, with manual evaluation Last Menstrual Period: ? 08/21/07 Menstrual/Pregnanc y Status: ? Other: ? Additional clinical information: Previous pap wnl HPVA - HPV testing requested if ASC-US on the current ThinPrep Pap test. ? SPECIMEN ADEQUACY ? Satisfactory for Evaluation - transformation zone component present GENERAL CATEGORIZATION ? Negative for Intraepithelial Lesion or Malignancy ? Document reviewed and electronically signed by: ? KIRK Rodriguez(ASCP) ? Report Date: ??11/09/2007 15:55 End of Report JAMES KUMAR 11/04/2007 11/06/2007 Gordy Gore MD PATHOLOGY ORDERABLES Performing Organization Address City/State/[facility] Co de Phone Number J[facility] KUM[facility] [address] [place] [address] documented in this encounter Visit Diagnoses Not on filedocumented in this encounter
--- OUTSIDE RECORDS SUMMARY | 2024-03-05 14:54 | XMS_ITS | Encounter Summary ---
Author Organization [facility] Address [address] [place] [address] Care Team Providers Care Rotary Drum Tanner Name Role Phone Gricelda Roth PATIENT RESOURCE SPECIALIST Primary Care Provider [phone] Encounter Details Date Type Department Care Team (Late st Contact Info) Description 09/10/2012 Phlebotomy Only [address] [address] Guest Relations Receptionist, Outpatient UNDEFINED CODE Social History Tobacco Use Types Packs/Day Years Used Date Smoking Tobacco: Never Assessed Sex and Gender Information Value Date Recorded Sex Assigned at Not on file Gender Identity Not on file Sexual Orientation Not on file documented as of this encounter Plan of Treatment Not on file documented as of this encounter Procedures Procedure Name Priority Date/Time Associated Diagnosis Comments PROGESTERONE STAT 09/10/2012 10:52 EDT UNDEFINED CODE documented in this encounter Results * PROGESTERONE (09/10/2012 10:52 EDT) Progesterone <0.2 ng/ml [facility] Comment: NON- FEMALES: follicular phase: 0.2-1.4 ng/ml luteal phase: 3.3-25.6 ng/ml mid luteal phase: 4.4-28.0 ng/ml postmenopausal: <0.1-0.7 ng/ml FEMALES: first trimester: 11.2-90.0 ng/ml second trimester: 25.6-89.4 ng/ml third trimester: 48.4-422.5 ng/ml ECTOPIC PREGNANCIES: consult pathologist Blood specimen (specimen) 09/10/2012 10:52 EDT 09/10/2012 10:56 EDT Doctor Transcribe CHEMISTRY & BLOOD G ORDERABLES Performing Organization Address City/State/[facility] Co de Phone Number [facility] [address] [place] [address] documented in this encounter Visit Diagnoses Diagnosis UNDEFINED CODE USED FOR CLEARING HOLD BILLS IN LYDIA EDITS WITHIN IDX documented in this encounter Care Teams Rotary Drum Tanner Relationship Specialty Start Date End Date Gricelda Roth, PATIENT RESOURCE SPECIALIST [address] [place] [phone] PCP - General 09/08/12 documented as of this encounter
--- OUTSIDE RECORDS SUMMARY | 2024-03-05 14:54 | XMS_ITS | Encounter Summary ---
Author Organization [facility] Address [address] [place] [address] Care Team Providers Care Hearing Instrument Specialist Name Role Phone Gricelda Roth LEAN MANAGER Primary Care Provider [phone] Reason for Visit * Reason Comments Infertility Encounter Details Date Type Department Care Team (Latest Contact Info) Description 09/10/2012 8:00 EDT Office Visit [facility] - [address] [address] Elsie Quiroz MD [address] [phone] Infertility, female (Primary Dx) Discharge Disposition: Auto Discharge Social History Tobacco Use Types Packs/Day Years Used Date Smoking Tobacco: Never Assessed Sex and Gender Information Value Date Recorded Sex Assigned at Not on file Gender Identity Not on file Sexual Orientation Not on file documented as of this encounter Discharge Disposition Disposition Code Departure Means Destination Auto Discharge documented in this encounter Progress Notes * Elsie Quiroz MD - 09/10/2012 0915 EDT See imagecast documented in this encounter Plan of Treatment Not on file documented as of this encounter Visit Diagnoses Diagnosis Infertility, female- Primary Female infertility of unspecified origin documented in this encounter Care Teams Hearing Instrument Specialist Relationship Specialty Start Date End Date Gricelda Roth NP [address] [place] [address] [address] [place] [phone] PCP - General 09/08/12 documented as of this encounter
--- OUTSIDE RECORDS SUMMARY | 2024-03-05 14:54 | XMS_ITS | Encounter Summary ---
Author Organization [facility] Address [address] [place] [address] Care Team Providers Care Correctional Sergeant Name Role Phone Gricelda Roth NARCOTICS DETECTIVE Primary Care Provider [phone] Encounter Details Date Type Department Care Team (Late st Contact Info) Description 09/10/2012 Orders Only Non [facility] Services Tony Oconnor MD [address] [phone] UNDEFINED CODE (Primary Dx) Social History Tobacco Use Types Packs/Day Years Used Date Smoking Tobacco: Never Assessed Sex and Gender Information Value Date Recorded Sex Assigned at Not on file Gender Identity Not on file Sexual Orientation Not on file documented as of this encounter Plan of Treatment Not on file documented as of this encounter Results * PROGESTERONE (09/10/2012 10:52 EDT) Progesterone <0.2 ng/ml [facility] Comment: NON- FEMALES: follicular phase: 0.2-1.4 ng/ml luteal phase: 3.3-25.6 ng/ml mid luteal phase: 4.4-28.0 ng/ml postmenopausal: <0.1-0.7 ng/ml FEMALES: first trimester: 11.2-90.0 ng/ml second trimester: 25.6-89.4 ng/ml third trimester: 48.4-422.5 ng/ml ECTOPIC PREGNANCIES: consult pathologist Blood specimen (specimen) 09/10/2012 10:52 EDT 09/10/2012 10:56 EDT Doctor Jolantarijarocho JUAN CHEMISTRY & BLOOD G ORDERABLES [facility] [address] [place] [address] documented in this encounter Visit Diagnoses Diagnosis UNDEFINED CODE- Primary USED FOR CLEARING HOLD BILLS IN LYDIA EDITS WITHIN IDX documented in this encounter Care Teams Correctional Sergeant Relationship Specialty Start Date End Date Gricelda Roth, BREANA [address] [place] [phone] PCP - General 09/08/12 documented as of this encounter
--- OUTSIDE RECORDS SUMMARY | 2024-03-05 14:54 | XMS_ITS | Encounter Summary ---
Author Organization [facility] Address [address] [place] [address] Care Team Providers Care Bus And Rail Operator Name Role Phone Unavailable Primary Care Provider Unavailabl e Encounter Details Date Type Department Care Team (Late st Contact Info) Description 03/07/2011 Results Only [facility] [address] [place], [place] [phone] Gordy Gore MD [address] [place] [address] [address] [place] [address] Social History Tobacco Use Types [...] Diagnosis Comments PAP TEST- RESULT ONLY Routine 03/07/2011 0:00 EDT documented in this encounter Results * PAP TEST- RESULT ONLY (03/07/2011 0:00 EDT) Pathology Report: CYTOPATHOLOGY REPORT Reports generated via electronic interface contain original data; however they are lacking the format of the original report. Caution should be taken when reading/interpreti ng unformatted reports. Name: ? TRUDI SMITH ? Accession #: ? [id number] : ? 1980 (Age: 30) ??F ?Collect Date: ? 03/07/2011 Location: ? [facility] ? Receive Date: ? 03/08/2011 Provider: ?GORDY GORE MD Copy to: ? Specimen/Source: ?Pap Test, Cervix/Endocervix, ThinPrep Imaging System with manual evaluation Last Menstrual Period: ? 01/26/11 delivery Menstrual/Pregnanc y Status: ? Post Treatment History: ? Colposcopy: 2006 Other: ? Additional clinical information: wnl 2006, 2008, 2008, 2000 ? SPECIMEN ADEQUACY ? Unsatisfactory for Evaluation - acellular sample submitted GENERAL CATEGORIZATION ? Specimen processed and examined, but unsatisfactory for evaluation of epithelial abnormality. Recommend repeat Pap test or further follow up, as clinically indicated. ? Document reviewed and electronically signed by: ? KIRK Olmdeo(ASCP) ? Report Date: ??03/12/2011 11:14 End of Report JAMES KUMAR 03/07/2011 03/08/2011 Gordy Gore MD PATHOLOGY ORDERABLES [facility] [address] [place] [address] documented in this encounter Visit Diagnoses Not on filedocumented in this encounter
--- OUTSIDE RECORDS SUMMARY | 2024-03-05 14:54 | XMS_ITS | Encounter Summary ---
Author Organization [facility] Address [address] [place] [address] Care Team Providers Care Reporting Analyst Name Role Phone Gricelda Roth STONE AND PLATE PREPARER APPRENTICE Primary Care Provider [phone] Encounter Details Date Type Department Care Team (Late st Contact Info) Description 09/10/2012 Phlebotomy Only [address] [address] Wood Dowel Machine Operator, Outpatient Social History Tobacco Use Types Packs/Day Years Used Date Smoking Tobacco: Never Assessed Sex and Gender Information Value Date Recorded Sex Assigned at Not on file Gender Identity Not on file Sexual Orientation Not on file documented as of this encounter Plan of Treatment Not on file documented as of this encounter Visit Diagnoses Not on filedocumented in this encounter Care Teams Reporting Analyst Relationship Specialty Start Date End Date Gricelda Roth, STONE AND PLATE PREPARER APPRENTICE [address] [place] [phone] PCP - General 09/08/12 documented as of this encounter
--- OUTSIDE RECORDS SUMMARY | 2024-03-05 14:54 | XMS_ITS | Encounter Summary ---
Author Organization [facility] Address [address] [place] [address] Care Team Providers Care Field Radio Technician Name Role Phone Unavailable Primary Care Provider Unavailabl e Encounter Details Date Type Department Care Team (Late st Contact Info) Description 07/29/2007 8:48 EDT Hospital Encounter [facility] [place] [address] [place] [address] Garland Vasquez MD PhD Social History Tobacco [...] Priority Date/Time Associated Diagnosis Comments CYTOPATHOLOGY Routine 07/20/2008 0:00 EST UTILITY WORKER PRODUCTION US OB FIRST TRIMESTER TRANSVAGINAL 10/02/2007 11:07 EDT documented in this encounter Results * CYTOPATHOLOGY (07/20/2008 0:00 EST) Pathology Report: CYTOPATHOLOGY REPORT ? Reports generated via electronic interface contain original data; ? however they are lacking the format of the original report. ? Caution should be taken when reading/interpreti ng unformatted reports. ? Name: ? TRUDI SMITH ? Accession #: ? [id number] ? : ? 1980 (Age: 28) ??F ?Collect Date: ? 07/20/2008 ? Location: ? [facility] ? Receive Date: ? 07/22/2008 ? Provider: ?LEANDRO GORE MD ? Copy to: ? Specimen/Source: ?Pap Test, Cervix/Endocervix, ThinPrep Imaging System ? with manual evaluation ? Last Menstrual Period: ? Other: ? Additional clinical information: Paps 05/07 & 06/08 wnl ? HPVA - HPV testing requested if ASC-US on the current ThinPrep Pap test. ? SPECIMEN ADEQUACY ? Satisfactory for Evaluation ? - transformation zone component present ? GENERAL CATEGORIZATION ? Negative for Intraepithelial Lesion or Malignancy ? Document reviewed and electronically signed by: ? Kulwinder Thompson, CT(ASCP) ? Report Date: ??07/26/2008 14:52 ? End of Report ? JAMES KUMAR 07/20/2008 07/22/2008 Leandro Gore MD PATHOLOGY ORDERABLES Performing Organization Address City/State/[facility] Co de Phone Number JAMES KUMAR [address] [place] [address] * UTILITY WORKER PRODUCTION US OB FIRST TRIMESTER TRANSVAGINAL (10/02/2007 11:07 EDT) Anatomical Region Laterality Modality Other 10/02/2007 11:0 7 EDT Narrative 10/30/2008 13:10 EDT USM EARLY INDICATION: ??Patient is a 27-year-old G1 woman with a last menstrual period of 08/21/2007, which would give her a gestational age of 6 weeks 0 days. ??The patient has longer cycles. She conceived using clomid. ??She had timed intercourse which would have been more consistent with a 35 day cycle. ??She has had hCGs. ??On 09/23 it was 236. ??She is here today for ultrasound confirmation of location. ULTRASOUND FINDINGS: Endovaginal ultrasound reveals an anteverted uterus with a single gestational sac and yolk sac. ??The yolk sac measures 1.1 x 0.5 x 1.0 cm and averages 0.9 cm, which would be roughly 4 weeks 6 days, which is consistent with patient's longer cycles and later conception date. The cervix appears normal. ??The myometrium appears normal. ??The gestational sac is in normal intrauterine location. Both ovaries are well visualized. ??The left ovary measures 2.5 x 1.3 x 2.6 cm. ??The right ovary measures 4.3 x 3.1 x 4.1 cm and has a corpus luteum cyst measuring 2.6 x 2.6 x 2.7 cm. ??No abnormalities are seen in either ovary. ??There is no free fluid or masses in the cul-de-sac. IMPRESSION: 1. ? Single intrauterine gestational sac with a yolk sac in normal location. ??Patients cycles are longer, even on Clomid, which is consistent with the discrepancy between her last menstrual period dating and gestational sac dating. ??Pregnancies are best dated by crown-rump length and not gestational sac. I have recommended that the patient get a followup ultrasound in 10-14 days to better date the . ??The patient is planning to get that done through Dr. Gore's office in [place] if possible. 2. ? The rest of the ultrasound is unremarkable. ??The patient does have a corpus luteal cyst on the right with no concerning in features. Patient was educated to findings and is planning to follow up for care with Dr. Gore in [place] and get a followup ultrasound with his office. D: ??10/02/07 T: ??10/02/07/dw Procedure Note Chapis Buck MD - 10/30/2008 USM EARLY INDICATION: Patient is a 27-year-old G1 woman with a last menstrual period of 08/21/2007, which would give her a gestational age of 6 weeks 0 days. The patient has longer cycles. She conceived using clomid. She had timed intercourse which would have been more consistent with a 35 day cycle. She has had hCGs. On 09/23 it was 236. She is here today for ultrasound confirmation of location. ULTRASOUND FINDINGS: Endovaginal ultrasound reveals an anteverted uterus with a single gestational sac and yolk sac. The yolk sac measures 1.1 x 0.5 x 1.0 cm and averages 0.9 cm, which would be roughly 4 weeks 6 days, which is consistent with patient's longer cycles and later conception date. The cervix appears normal. The myometrium appears normal. The gestational sac is in normal intrauterine location. Both ovaries are well visualized. The left ovary measures 2.5 x 1.3 x 2.6 cm. The right ovary measures 4.3 x 3.1 x 4.1 cm and has a corpus luteum cyst measuring 2.6 x 2.6 x 2.7 cm. No abnormalities are seen in either ovary. There is no free fluid or masses in the cul-de-sac. IMPRESSION: 1. Single intrauterine gestational sac with a yolk sac in normal location. Patients cycles are longer, even on Clomid, which is consistent with the discrepancy between her last menstrual period dating and gestational sac dating. Pregnancies are best dated by crown-rump length and not gestational sac. I have recommended that the patient get a followup ultrasound in 10-14 days to better date the . The patient is planning to get that done through Dr. Gore's office in [place] if possible. 2. The rest of the ultrasound is unremarkable. The patient does have a corpus luteal cyst on the right with no concerning in features. Patient was educated to findings and is planning to follow up for care with Dr. Gore in [place] and get a followup ultrasound with his office. /alma Garland Vasquez MD PhD IMG US UTILITY WORKER PRODUCTION ORDER JOSE CARLOS documented in this encounter Visit Diagnoses Not on filedocumented in this encounter
--- OUTSIDE RECORDS SUMMARY | 2024-03-05 14:54 | XMS_ITS | Encounter Summary ---
Author Organization [facility] Address [address] [place] [address] Care Team Providers Care Agile Tester Name Role Phone Unavailable Primary Care Provider Unavailabl e Encounter Details Date Type Department Care Team (Late st Contact Info) Description 06/25/2010 Results Only [facility] Laboratory Services - [facility] [address] [place], [place] [id number] Gordy Gore MD [address] [place] [address] Social History Tobacco Use Types [...] Priority Date/Time Associated Diagnosis Comments CYTOPATHOLOGY Routine 06/25/2010 0:00 EST documented in this encounter Results * CYTOPATHOLOGY (06/25/2010 0:00 EST) Pathology Report: CYTOPATHOLOGY REPORT ? Reports generated via electronic interface contain original data; ? however they are lacking the format of the original report. ? Caution should be taken when reading/interpreti ng unformatted reports. ? Name: ? TRUDI SMITH ? Accession #: ? [id number] ? : ? 1980 (Age: 29) ??F ?Collect Date: ? 06/25/2010 ? Location: ? [facility] ? Receive Date: ? 06/26/2010 ? Provider: ?GORDY GORE MD ? Copy to: ? Specimen/Source: ?Pap Test, Cervix/Endocervix, ThinPrep Imaging System ? with manual evaluation ? Last Menstrual Period: ? 04/24/2010 ? Menstrual/Pregnanc y Status: ? SPECIMEN ADEQUACY ? Satisfactory for Evaluation ? - transformation zone component present ? GENERAL CATEGORIZATION ? Negative for Intraepithelial Lesion or Malignancy ? Document reviewed and electronically signed by: ? Mary Brito, SCT(ASCP) ? Report Date: ??06/28/2010 13:08 ? End of Report ? JAMES KUMAR 06/25/2010 06/26/2010 Gordy Gore MD PATHOLOGY ORDERABLES Performing Organization Address City/State/[facility] Co de Phone Number JAMES KUMAR [address] [place] [address] documented in this encounter Visit Diagnoses Not on filedocumented in this encounter
--- OUTSIDE RECORDS SUMMARY | 2024-03-05 14:54 | XMS_ITS | Encounter Summary ---
Author Organization [facility] Address [address] [place] [address] Care Team Providers Care Industrial Paramedic Name Role Phone Unavailable Primary Care Provider Unavailabl e Encounter Details Date Type Department Care Team (Late st Contact Info) Description 10/01/2006 Results Only [facility] - [place] [address] [place] [address] Gordy Gore MD [address] [place] [address] [address] [place] [address] Social History Tobacco Use Types [...] Priority Date/Time Associated Diagnosis Comments CYTOPATHOLOGY Routine 10/01/2006 0:00 EDT documented in this encounter Results * CYTOPATHOLOGY (10/01/2006 0:00 EDT) Pathology Report: CYTOPATHOLOGY REPORT Reports generated via electronic interface contain original data; however they are lacking the format of the original report. Caution should be taken when reading/interpreti ng unformatted reports. Name: ? TRUDI SMITH ? Accession #: ? [id number] : ? 1980 (Age: 26) ??F ?Collect Date: ? 10/01/2006 Location: ? [facility] ? Receive Date: ? 10/03/2006 Provider: ?GORDY GORE MD Copy to: ? Specimen/Source: ?ThinPrep Pap Test, Cervix/Endocervix, processed on [employer] ThinPrep Imaging System, with manual evaluation Last Menstrual Period: ? 07/02/06 Other: ? HPVA - HPV testing requested if ASC-US on the current ThinPrep Pap test. ? SPECIMEN ADEQUACY ? Satisfactory for Evaluation - transformation zone component absent GENERAL CATEGORIZATION ? Negative for Intraepithelial Lesion or Malignancy ? Document reviewed and electronically signed by: ? KIRK Olmedo(ASCP) ? Report Date: ??10/07/2006 10:27 End of Report JAMES KUMAR 10/01/2006 10/03/2006 Gordy Gore MD PATHOLOGY ORDERABLES JAMES KUMAR [address] [place] [address] documented in this encounter Visit Diagnoses Not on filedocumented in this encounter
[2024-03-05 16:06] LABS: ESR 28 mm/hr (0-20)
[2024-03-05 16:07] LABS: Abs Immature Grans 0.04 10^3/uL (0.0-0.06); Absolute Basophil Count 0.06 10^3/uL (0.0-0.2); Absolute Eosinophil Count 0.25 10^3/uL (0.0-0.7); Basophils % 0.5 %; Eosinophils % 2.2 %; HCT 36.4 % (36.0-46.0); HGB 11.3 g/dL (11.2-15.7); Immature Grans % 0.3 %; Lymphocytes % 26.1 %; MCH 26.5 pg (27.0-33.0); MCV 85 fL (80-95); MPV 9.1 fL (8.0-11.0); Monocytes % 4.3 %; Neutrophils % 66.6 %; Platelet Count 570 10^3/uL (130-400); RBC 4.27 10^6/uL (3.93-5.22); RDW 13.6 % (11.7-14.6); RDW-SD 42.5 fL; WBC 11.59 10^3/uL (4.4-10.8)
[2024-03-05 16:11] LABS: Absolute Lymphocyte Count 3.02 10^3/uL (1.2-3.4); Absolute Neutrophil Count 7.72 10^3/uL (1.2-6.7)
[2024-03-05 16:31] LABS: ALT 40 U/L (14-59); AST 25 U/L (15-37); Albumin 3.1 g/dL (3.4-5.0); Alkaline Phosphatase 131 U/L (46-116); BUN 8 mg/dL (7-18); Bilirubin, Total 0.24 mg/dL (0.2-1.0); C-Reactive Protein 5.21 mg/dL (<or=0.5); CREATININE 0.8 mg/dL (0.55-1.02); Calcium 9.2 mg/dL (8.5-10.1); Chloride 106 mmol/L (98-107); Estimated GFR 94.28 (mL/min/1.73m2); Glucose 108 mg/dL (74-106); Potassium 3.4 mmol/L (3.5-5.1); Sodium 143 mmol/L (136-145); TSH 0.73 uIU/mL (0.36-3.74); Total Protein 7.1 g/dL (6.4-8.2)
[2024-03-05 22:17] LABS: Rheumatoid Factor <8.6 IU/mL (<12.0)
[2024-03-05 23:19] LABS: Hepatitis B Surface Ag Negative (Negative)
[2024-03-05 23:44] LABS: Hepatitis C Ab w Rflx HCV PCR Negative (Negative)
[2024-03-08 09:41] LABS: Cyclic Citrullinated Peptide <2.5 U/mL (<5.0)
[2024-03-08 12:29] LABS: Parvovirus B19 Ab, IgG Negative (Negative); Parvovirus B19 Ab, IgM Negative (Negative)
[2024-03-08 16:12] LABS: Anaplasma phagocytophilum Negative (Negative); B. miyamotoi PCR Negative (Negative); Babesia divergens/MO-1 Negative (Negative); Babesia duncani Negative (Negative); Babesia microti Negative (Negative); Ehrlichia chaffeensis Negative (Negative); Ehrlichia ewingii/canis Negative (Negative); Ehrlichia muris eauclairensis Negative (Negative)
[2024-03-12 11:55] LABS: GGT 39 U/L
== END 2024-03-05 14:51 | disposition home or self-care (01) ==
LOC: NCHCN 14:50
PROVIDERS: Visit Provider Student in an Organized Health Care Education/Training Program
DX: M13.0 Polyarthritis, unspecified (principal)
CPT/HCPCS: 80053; 85652; 86200; 86803; 87340; 87798; 82977; 84443; 85025; 86140; 86431; 86747

== ENCOUNTER 2024-04-30 12:13 | Outpatient (REF) | payer OTHER, SELFPAY ==
--- OUTSIDE RECORDS SUMMARY | 2024-04-30 12:14 | XMS_ITS | Encounter Summary ---
Author Organization [facility] Address [facility] [place] [address] Care Team Providers Care Stationary Equipment Mechanic Name Role Phone Geovani Harden [facility] Primary Care Provider [phone] Reason for Visit * Reason Comments Skin Check * Consultation (Routine) - Closed Specialty Diagnoses / Procedures Referred By Jessica romero Referred To Contact Dermatology Diagnoses Nevus, atypical Screening for skin cancer Sherrie Larson, SUPERVISOR [employer]ACH[employer] [address] [place] [address] [facility] Dermatology [address] [place] [address] Referral ID Status Reason Start Date Expiration Date V isits Requested Visits Authorized [id number] Closed Consult, Test & Treat PCP Updated and/or Approved 09/03/2022 09/03/2023 6 6 Encounter Details Date Type Department Care Team (Late st Contact Info) Description 04/09/2023 10:40 AM EST Office Visit Dermatology at [facility] [address] [place] [id number] Casimiro Larson MD [facility] [address] ANNABELLE [place] [address] Blue nevus; SK (seborrheic keratosis); Telangiectasia; Multiple [...] for FSE. Pending pathology. []Note routed to secretary board of commissioners [x]Recall placed in scheduling system []Appointment scheduled at checkout Scribe attestation: Sharyn Hennessy [facility] performed the documentation for this encounter inthe presence of and acting as a scribe for Casimiro Larson MD. I performed the above scribed service and agree with the accuracy of the documentation in this encounter. Reviewed and signed by: Casimiro Larson MD Dermatology [facility] Patient seen and evaluated with staff national accounts recruiter: Nelida Loredo MD Department of Dermatology [facility] * Casimiro Larson MD - [...] AM EST 04/09/2023 10:33 AM EST Narrative [facility] - 04/09/2023 10:33 AM EST Specimen requisition ordered. ??Separate Pathology report to follow Nelida Loredo MD PATHOLOGY/CYTOLOGY ORDERABLES [facility] [place] [address] * Surgical Pathology Report (04/09/2023 10:30 AM EST) Final Diagnosis [id number] ? Location: [facility] The signing pathologist has (i) examined the relevant preparation(s) for the specimen(s) and (ii) rendered or confirmed the diagnosis(es). . ?Surgical Pathology DIAGNOSIS Right mid back, skin shave biopsy: - ??Compound melanocytic nevus, ??not identified at the specimen edges in the examined planes of section Electronically signed by: ?Briana Castillo MD Verified: ??04/16/2023 11:07 ??Dermatopatholo gist Performed at: ??[facility] Dept. of Pathology, [place] [address] Senior Accounting Associate: Eduardo Foster MD, FCAP, ??CLIA Certificate: [id number] SPECIMEN(S) SUBMITTED A - right mid back, [...] labeled A1. ??sdy 04/16/2023 11:07 AM EST [facility] SPECIMEN FROM SKIN / Unknown 04/09/2023 10:30 AM EST 04/09/2023 10:30 AM EST Casimiro Larson MD PATHOLOGY/CYTOLOGY O RDERABLES [facility] [address] [place] [address] documented in this encounter Visit Diagnoses Diagnosis Blue nevus SK (seborrheic keratosis) Other seborrheic keratosis Telangiectasia Other and unspecified capillary diseases Multiple benign nevi Benign neoplasm of skin, site unspecified Neoplasm of unspecified behavior of bone, soft tissue, and skin documented in this encounter Care Teams Stationary Equipment Mechanic Relationship Specialty Start Date End Date Geovani Harden DNP [address] [place] [id number] PCP - General Family Medicine 09/03/22 documented as of this encounter
--- OUTSIDE RECORDS SUMMARY | 2024-04-30 12:14 | XMS_ITS | Clinical Summary ---
Author Organization [facility] [place] [address] Care Team Providers Care Test Pilot Name Role Phone Geovani Harden DNP Primary [...] 2021 Breast Cancer screening 2021 Covid-19 Vaccine ( - season) 2024 Influenza (Flu) vaccine (1 o f 1 - Influenza standard series) 01/18/2024 Care Teams Test Pilot Relationship Specialty Start Date End Date Geovani Harden DNP [address] [place], [place] [phone] PCP - General Family Medicine 09/03/22
--- OUTSIDE RECORDS SUMMARY | 2024-04-30 12:14 | XMS_ITS | Encounter Summary ---
[place] [address] Care Team Providers Care Hr Receptionist Name Role Phone Geovani Harden DNP Primary Care Provider [phone] Encounter Details Date Type Department Care Team [...] on filedocumented in this encounter Care Teams Hr Receptionist Relationship Specialty Start Date End Date Geovani Harden DNP [address] [place] [address] [place] [address] PCP - General Family Medicine 09/03/22 documented as of this encounter
--- OUTSIDE RECORDS SUMMARY | 2024-04-30 12:15 | XMS_ITS | Encounter Summary ---
Author Organization [facility] Address [address] [place] [address] Care Team Providers Care Knot Tying Operator Name Role Phone Gricelda Roth [employer] STRAIGHTENER Primary Care Provider [phone] Encounter Details Date Type Department Care Team (Latest Contact Info) Description 01/23/2024 Lab Requisition [facility] Pathology & Laboratory Medicine - [address] [address] Leandro Gore MD [address] [place] [address] [address] [place], [place] [phone] Encounter for screening for human papillomavirus (HPV); Encounter for gynecological examination (general) (routine) without abnormal findings Social History Tobacco Use Types Packs/Day Years Used Date Smoking Tobacco: Never Assessed Comments Unknown Sex and Gender Information Value Date Recorded Sex Assigned at Not on file Legal Sex Female 18:03 EST Gender Identity Not on file Sexual Orientation [...] 16, PCR Negative Negative 02/05/2024 15:14 EDT [facility] HPV High Risk type 18, PCR Negative Negative 02/05/2024 15:14 T [facility] HPV other High Risk types, PCR Negative Negative 02/05/2024 15:14 T [facility] Comment: The following Other High Risk HPV types were not detected: ??31,33, 35, 39, 45, 51, 52, 56, 58, 59, 66 and 68. Pap Test CERVIX UTERI STRUCTURE / Unknown 01/23/2024 17:09 EDT 02/04/2024 13:09 EDT Leandro Gore MD MICROBIOLOGY - GENERAL ORDERABLE S Final Result [facility] [address] [place] [id number] * PAP TEST (01/23/2024 17:09 EDT) Specimens A. Cervix and/or Endocervix , ThinPrep Imaging System with Manual Evaluation 02/05/2024 15:14 [facility] Specimen Adequacy Satisfactory for Evaluation - transformation zone component present 02/05/2024 15:14 [facility] General Categorization Negative for intraepithelial lesion or malignancy 02/05/2024 15:14 [facility] Attestation . 02/05/2024 15:14 [facility] at 1514 Clinical History SEE BELOW 02/05/20 15:14 [facility] Performing Lab [facility] 02/05/2024 15:14 [facility] Scanned Images 02/05/2024 15:14 [facility] HPV High Risk type 16, PCR Negative 02/05/2024 15:14 [facility] HPV High Risk type 18, PCR Negative 02/05/2024 15:14 EDT [facility] HPV Other High Risk Types, PCR Negative The following Other High Risk HPV types were not detected: 31,33, 35, 39, 45, 51, 52, 56, 58, 59, 66 and 68. 02/05/2024 15:14 EDT [facility] Pap Test CERVIX UTERI STRUCTURE / Unknown 01/23/2024 17:09 EDT 01/26/2024 10:24 EDT us Leandro Gore MD PATHOLOGY ORDERABLES Final Resul t [facility] [address] [place] [address] documented in this encounter Visit Diagnoses Diagnosis Encounter for screening for human papillomavirus (HPV) Special screening examination for human papillomavirus (HPV) Encounter for gynecological examination (general) (routine) without abnormal findings documented in this encounter Care Teams Knot Tying Operator Relationship Specialty Start Date End Date Gricelda Roth NP [address] [place] [phone] PCP - General 09/08/12 documented as of this encounter
--- OUTSIDE RECORDS SUMMARY | 2024-04-30 12:15 | XMS_ITS | Encounter Summary ---
Author Organization [facility] Address [address] [place] [address] Care Team Providers Care Radiology Resident Name Role Phone Gricelda Roth FASHION JOURNALIST Primary Care Provider [phone] Encounter Details Date Type Department Care Team (Late st Contact Info) Description 03/05/2024 Lab Requisition [facility] Pathology & Laboratory Medicine - [address] [address] Outr Resulting Lab, Provider Social History Tobacco Use Types Packs/Day Years [...] Procedure Name Priority Date/Time Associated Diagnosis Comments HEPATITIS C AB W REFLEX TO HCV RNA BY PCR Routine 03/05/2024 14:10 EDT HEPATITIS B SURFACE ANTIGEN Routine 03/05/2024 14:10 EDT documented in this encounter Results * HEPATITIS B SURFACE ANTIGEN (03/05/2024 14:10 EDT) Hep B Surface Ag Negative Negative 03/05/2024 23:14 EDT [facility] Blood VENOUS BLOOD / Unknown 03/05/2024 14:10 EDT 03/05/2024 21:50 EDT us Provider Outr Resulting Lab CHEMISTRY & BLOOD GA S ORDERABLES Final Result Performing Organization Address [facility] Co de Phone Number [facility] [address] [place] [address] * HEPATITIS C AB W REFLEX TO HCV RNA BY PCR (03/05/2024 14:10 EDT) Hep C Antibody Negative Negative 03/05/2024 23:39 EDT [facility] Blood VENOUS BLOOD / Unknown 03/05/2024 14:10 EDT 03/05/2024 21:50 EDT us Provider Outr Resulting Lab CHEMISTRY & BLOOD GA S ORDERABLES Final Result Performing Organization Address [facility] Co de Phone Number [facility] [address] [place], [place] [address] documented in this encounter Visit Diagnoses Not on filedocumented in this encounter Care Teams Radiology Resident Relationship Specialty Start Date End Date Gricelda Roth, BREANA [address] [place] [phone] PCP - General 09/08/12 documented as of this encounter
--- OUTSIDE RECORDS SUMMARY | 2024-04-30 12:15 | XMS_ITS | Encounter Summary ---
Author Organization [facility] Address [address] [place] [address] Care Team Providers Care Molded Goods Spot Picker Name Role Phone Unavailable Primary Care Provider Unavailabl e Encounter Details Date Type Department Care Team (Late st Contact Info) Description 07/02/2012 Results Only [facility] Laboratory Services - [facility] [place] [address] [place], [place] [phone] Gordy Gore MD [address] [place] [address] [address] [place] [address] Social History Tobacco Use Types [...] ? TRUDI SMITH ? Accession #: ? [id number] ? : ? 1980 (Age: 31) ??F [...] types 16,18,31,33,35, 39,45,51,52,56,58, 59,66, and 68 by curtain worker mediated amplification. Comments Document reviewed and electronically signed by: ? System Interface ? Report date: 07/14/2012 By the signature above, the attending physician certifies that he/she has personally conducted a gross and/or microscopic examination of the described specimens and rendered or confirmed the above diagnosis. End of Report [facility] 07/02/2012 07/06/2012 us Gordy Gore MD PATHOLOGY ORDERABLES Final Resul t [facility] [address] [place] [address] documented in this encounter Visit Diagnoses Not on filedocumented in this encounter
--- OUTSIDE RECORDS SUMMARY | 2024-04-30 12:15 | XMS_ITS | Encounter Summary ---
Author Organization [facility] Address [address] [place] [address] Care Team Providers Care Horticulture Teacher Name Role Phone Marco John MD Primary Care Provider [phone] Encounter Details Date Type Department Care Team (Late st Contact Info) Description 09/02/2012 Results Only Imaging [facility] [phone] Tony Oconnor MD [address] [place] [phone] Social History Tobacco Use Types Packs/Day Years [...] Procedure Name Priority Date/Time Associated Diagnosis Comments ATTENDING PHYSICIAN US EXAM 09/10/2012 8:22 EDT documented in this encounter Results * ATTENDING PHYSICIAN US EXAM (09/10/2012 8:22 EDT) Anatomical Region [...] Summary: Overall impression: Ultrasound Performed:Limited transvaginal follicular ultrasound-34716 1) EMT= 9.4 mm 2) normal adnexa. Follow- up: as per outside protocol. Addendum Begins Indication: outside monitoringundergoing gestational carrier. Gynecological Ultrasonography: Uterus: anteverted. Endometrium: endometrium clearly visualized. Trilaminar. Endometrium thickness total: 9.4 mm. Right Ovary: normal. Left Ovary: normal. Cul de Sac / Pouch of Ru: no free fluid visible. Report Summary: Overall impression: Ultrasound Performed:Limited transvaginal follicular ultrasound-50653 1) EMT= 9.4 mm 2) normal adnexa. Follow- up: as per outside protocol. Addendum Ends Procedure Note 09/10/2012 Indication: outside monitoringundergoing gestational carrier. Gynecological Ultrasonography: Uterus: anteverted. Endometrium: endometrium clearly visualized. Trilaminar. Endometrium thickness total: 9.4 mm. Right Ovary: normal. Left Ovary: normal. Cul de Sac / Pouch of Ru: no free fluid visible. Report Summary: Overall impression: Ultrasound Performed:Limited transvaginal follicular ultrasound-18624 1) EMT= 9.4 mm 2) normal adnexa. Follow- up: as per outside protocol. Addendum Begins Indication: outside monitoringundergoing gestational carrier. Gynecological Ultrasonography: Uterus: anteverted. Endometrium: endometrium clearly visualized. Trilaminar. Endometrium thickness total: 9.4 mm. Right Ovary: normal. Left Ovary: normal. Cul de Sac / Pouch of Ru: no free fluid visible. Report Summary: Overall impression: Ultrasound Performed:Limited transvaginal follicular ultrasound-70434 1) EMT= 9.4 mm 2) normal adnexa. Follow- up: as per outside protocol. Addendum Ends us Tony Oconnor MD IMG ATTENDING PHYSICIAN ORDERABLES Edited documented in this encounter Visit Diagnoses Not on filedocumented in this encounter Care Teams Horticulture Teacher Relationship Specialty Start Date End Date Marco John MD [address] [phone] PCP - General 09/01/12 09/07/12 documented as of this encounter
--- OUTSIDE RECORDS SUMMARY | 2024-04-30 12:15 | XMS_ITS | Encounter Summary ---
Author Organization [facility] Address [address] [place] [address] Care Team Providers Care High School Physical Education Teacher Name Role Phone Gricelda Roth MAINTENANCE MECHANIC 2ND SHIFT Primary Care Provider [phone] Encounter Details Date Type Department Care Team (Late st Contact Info) Description 09/10/2012 Orders Only Non [facility] Tony Oconnor MD [address] [place] [phone] Social History Tobacco Use Types Packs/Day [...] on filedocumented in this encounter Care Teams High School Physical Education Teacher Relationship Specialty Start Date End Date Gricelda Roth NP [address] [place] [phone] PCP - General 09/08/12 documented as of this encounter
--- OUTSIDE RECORDS SUMMARY | 2024-04-30 12:15 | XMS_ITS | Encounter Summary ---
Author Organization [facility] Address [address] [place] [address] Care Team Providers Care Hemp Fiber Taker Off Name Role Phone Unavailable Primary Care Provider Unavailabl e Encounter Details Date Type Department Care Team (Late st Contact Info) Description 07/29/2007 8:48 EDT Hospital Encounter [facility] [address] [place] [address] Garland Vasquez MD PhD Social History Tobacco [...] Diagnosis Comments CYTOPATHOLOGY Routine 07/20/2008 0:00 EST LETTER STAMPING MACHINE OPERATOR US OB FIRST TRIMESTER TRANSVAGINAL 10/02/2007 11:07 EDT documented in this encounter Results * CYTOPATHOLOGY (07/20/2008 0:00 EST) Pathology Report: CYTOPATHOLOGY REPORT ? Reports generated via electronic interface contain original data; ? however they are lacking the format of the original report. ? Caution should be taken when reading/interpreti ng unformatted reports. ? Name: ? TRUDI SMITH ? Accession #: ? [id number] ? : ? 1980 (Age: 28) ??F [...] reviewed and electronically signed by: ? Kulwinder Stumler, CT(ASCP) ? Report Date: ??07/26/2008 14:52 ? End of Report ? [facility] 07/20/2008 07/22/2008 us Leandro Gore MD PATHOLOGY ORDERABLES Final Resul t Performing Organization Address City/State/[facility] Co de Phone Number [facility] [address] [place] [address] * LETTER STAMPING MACHINE OPERATOR US OB FIRST TRIMESTER TRANSVAGINAL (10/02/2007 11:07 [...] that done through Dr. Gore's office in [place] if possible. 2. ? The rest of the ultrasound is unremarkable. ??The patient does have a corpus luteal cyst on the right with no concerning in features. Patient was educated to findings and is planning to follow up for care with Dr. Gore in [place] and get a followup ultrasound with his [...] that done through Dr. Gore's office in [place] if possible. 2. The rest of the ultrasound is unremarkable. The patient does have a corpus luteal cyst on the right with no concerning in features. Patient was educated to findings and is planning to follow up for care with Dr. Gore in [place] and get a followup ultrasound with his office. /alma us Garland Vasquez MD PhD IMG US LETTER STAMPING MACHINE OPERATOR ORDERABLES Fi nal Result documented in this encounter Visit Diagnoses Not on filedocumented in this encounter
--- OUTSIDE RECORDS SUMMARY | 2024-04-30 12:15 | XMS_ITS | Encounter Summary ---
Author Organization [facility] Address [address] [place] [address] Care Team Providers Care Life Skills Coach Name Role Phone Gricelda Roth CHAPERONE Primary Care Provider [phone] Encounter Details Date Type Department Care Team (Late st Contact Info) Description 09/10/2012 Phlebotomy Only [address] [address] Computer Installer, Outpatient Social History Tobacco Use Types Packs/Day [...] on filedocumented in this encounter Care Teams Life Skills Coach Relationship Specialty Start Date End Date Gricelda Roth NP [address] [place] [phone] PCP - General 09/08/12 documented as of this encounter
--- OUTSIDE RECORDS SUMMARY | 2024-04-30 12:15 | XMS_ITS | Encounter Summary ---
Author Organization [facility] Address [address] [place] [address] Care Team Providers Care Etl Analyst Developer Name Role Phone Gricelda Roth LANG PATH THERAPIST Primary Care Provider [phone] Encounter Details Date Type Department Care Team (Late st Contact Info) Description 04/24/2017 Results Only [facility] [phone] Gordy Gore MD [address] [place] [address] [address] [place] [address] Social History Tobacco Use Types [...] ? TRUDI FERNANDEZ ? Accession #: ? [id number] ? : ? 1980 (Age: 36) ??F [...] types 16,18,31,33,35, 39,45,51,52,56,58, 59,66, and 68 by dimension quarry supervisor mediated amplification. Comments Document reviewed and electronically signed by: ? System Interface ? Report date: 05/08/2017 By the signature above, the attending physician certifies that he/she has personally conducted a gross and/or microscopic examination of the described specimens and rendered or confirmed the above diagnosis. End of Report [facility] 04/24/2017 04/29/2017 us Gordy Gore MD PATHOLOGY ORDERABLES Final Resul t [facility] [address] [place] [address] documented in this encounter Visit Diagnoses Not on filedocumented in this encounter Care Teams Etl Analyst Developer Relationship Specialty Start Date End Date Gricelda Roth NP [address] [place] [phone] PCP - General 09/08/12 documented as of this encounter
--- OUTSIDE RECORDS SUMMARY | 2024-04-30 12:15 | XMS_ITS | Encounter Summary ---
Author Organization [facility] Address [address] [place] [address] Care Team Providers Care Machine Slat Basket Maker Name Role Phone Unavailable Primary Care Provider Unavailabl e Encounter Details Date Type Department Care Team (Late st Contact Info) Description 03/07/2011 Results Only [facility] Laboratory Services - [facility] ([facility] [address] [place], [place] [phone] Gordy Gore MD [address] [place] [address] [address] [place] [address] Social History Tobacco Use Types [...] ? TRUDI SMITH ? Accession #: ? [id number] : ? 1980 (Age: 30) ??F ?Collect [...] by: ? KIRK Olmedo(ASCP) ? Report Date: ??03/12/2011 11:14 End of Report [facility] 03/07/2011 03/08/2011 us Gordy Gore MD PATHOLOGY ORDERABLES Final Resul t [facility] [address] [place] [address] documented in this encounter Visit Diagnoses Not on filedocumented in this encounter
--- OUTSIDE RECORDS SUMMARY | 2024-04-30 12:15 | XMS_ITS | Encounter Summary ---
Author Organization [facility] Address [address] [place] [address] Care Team Providers Care Leather Goods Assembler Name Role Phone Gricelda Roth ELECTRICAL DESIGN TECHNICIAN Primary Care Provider [phone] Encounter Details Date Type Department Care Team (Late st Contact Info) Description 09/10/2012 Phlebotomy Only [address] [address] Principal Security Architect, Outpatient Social History Tobacco Use Types Packs/Day [...] on filedocumented in this encounter Care Teams Leather Goods Assembler Relationship Specialty Start Date End Date Gricelda Roth NP [address] [place] [phone] PCP - General 09/08/12 documented as of this encounter
--- OUTSIDE RECORDS SUMMARY | 2024-04-30 12:15 | XMS_ITS | Encounter Summary ---
Author Organization [facility] Address [address] [place] [address] Care Team Providers Care Funeral Home Associate Name Role Phone Gricelda Roth CAPTAIN AIRLINE PILOT Primary Care Provider [phone] Encounter Details Date Type Department Care Team (Late st Contact Info) Description 09/10/2012 Phlebotomy Only [address] [address] Paper Pattern Inspector, Outpatient UNDEFINED CODE Social History Tobacco Use [...] (specimen) 09/10/2012 10:52 EDT 09/10/2012 10:56 EDT us Doctor Transcrijarocho JUAN CHEMISTRY & BLOOD GAS ORDER JOSE CARLOS Final Result [facility] [address] [place] [address] documented in this encounter Visit Diagnoses Diagnosis UNDEFINED CODE USED FOR CLEARING HOLD BILLS IN LYDIA EDITS WITHIN IDX documented in this encounter Care Teams Funeral Home Associate Relationship Specialty Start Date End Date Gricelda Roth, BREANA [address] [place] [phone] PCP - General 09/08/12 documented as of this encounter
--- OUTSIDE RECORDS SUMMARY | 2024-04-30 12:15 | XMS_ITS | Clinical Summary ---
Author Organization [facility] Address [address] [place] [address] Care Team Providers Care Upper Doubler Name Role Phone Gricelda Roth PHOTOGRAPH MOUNTER Primary Care Provider [phone] Encounters Date Type Department Care Team Description 03/05/2024 Lab Requisition [facility] Pathology & Laboratory [address] [address] Outr Resulting Lab, Provider 03/05/2024 Lab Requisition [facility] Pathology & Laboratory [address] [address] Outr Resulting Lab, Provider from Last 3 Months Social History Tobacco Use Types Packs/Day Years Used Date Smoking Tobacco: Never Assessed Comments Unknown Sex and Gender Information Value Date Recorded Sex Assigned at Not on file Legal Sex Female 18:03 EST Gender Identity Not on file Sexual Orientation Not on file Plan of Treatment Health Maintenance Due Date Last Done Comments Hepatitis B Vaccine (1 of 3 - 19+ 3-dose series) 07/09 COVID-19 Vaccine ( season) 2024 Hepatitis C Screen Completed 03/05/2024 Procedures Procedure Name Priority Date/Time Associated Diagnosis Comments HEPATITIS B SURFACE ANTIGEN Routine 03/05/2024 14:10 EDT HEPATITIS C AB W REFLEX TO HCV RNA BY PCR Routine 03/05/2024 14:10 EDT RHEUMATOID FACTOR Routine 03/05/2024 14: 10 EDT CCP ANTIBODIES Routine 03/05/2024 14:10 EDT from Last 3 Months Results * CCP ANTIBODIES (03/05/2024 14:10 EDT) CCP Antibodies <2.5 <5.0 U/mL 03/08/2024 9:37 EDT [facility] Blood VENOUS BLOOD / Unknown 03/05/2024 14:10 EDT 03/05/2024 21:50 EDT us Provider Outr Resulting Lab IMMUNOLOGY AND SEROL OGY ORDERABLES Final Result [facility] [address] [place] [address] * HEPATITIS C AB W REFLEX TO HCV RNA BY PCR (03/05/2024 14:10 EDT) Hep C Antibody Negative Negative 03/05/2024 23:39 EDT [facility] Blood VENOUS BLOOD / Unknown 03/05/2024 14:10 EDT 03/05/2024 21:50 EDT us Provider Outr Resulting Lab CHEMISTRY & BLOOD GA S ORDERABLES Final Result [facility] [address] [place] [address] * HEPATITIS B SURFACE ANTIGEN (03/05/2024 14:10 EDT) Hep B Surface Ag Negative Negative 03/05/2024 23:14 EDT [facility] Blood VENOUS BLOOD / Unknown 03/05/2024 14:10 EDT 03/05/2024 21:50 EDT us Provider Outr Resulting Lab CHEMISTRY & BLOOD GA S ORDERABLES Final Result [facility] [address] [place] [address] * RHEUMATOID FACTOR (03/05/2024 14:10 EDT) Rheumatoid Factor <8.6 <12.0 IU/mL 03/05/2024 22:12 EDT [facility] Blood VENOUS BLOOD / Unknown 03/05/2024 14:10 EDT 03/05/2024 21:50 EDT us Provider Outr Resulting Lab CHEMISTRY & BLOOD GA S ORDERABLES Final Result [facility] [address] [place] [address] from Last 3 Months Care Teams Upper Doubler Relationship Specialty Start Date End Date Gricelda Roth NP [address] [place] [phone] PCP - General 09/08/12
--- OUTSIDE RECORDS SUMMARY | 2024-04-30 12:15 | XMS_ITS | Encounter Summary ---
Author Organization [facility] Address [address] [place] [address] Care Team Providers Care Doors Prefitter Name Role Phone Gricelda Roth RECEIVABLE EXECUTIVE Primary Care Provider [phone] Encounter Details Date Type Department Care Team (Latest Contact Info) Description 11/02/2021 Lab Requisition [facility] Pathology & Laboratory Medicine - [address] [address] Leandro Gore MD [address] [place] [address] [address] [place], [place] [phone] Encounter for gynecological examination (general) (routine) without [...] 16, PCR Negative Negative 11/15/2021 14:29 EDT [facility] HPV18/45 RNA (HPV18/45) Negative Negative 11/15/2021 14:29 EDT [facility] Papanicolaou smear specimen (specimen) CERVIX UTERI STRUCTURE / Unknown 11/02/2021 16:59 EDT 11/08/2021 11:35 EDT Leandro Gore MD MICROBIOLOGY - GENERAL ORDERABLE S Final Result Performing Organization Address [facility] de Phone Number [facility] [address] [place] [address] * (ABNORMAL) HUMAN PAPILLOMAVIRUS (HPV) DETECTION-HIGH RISK TYPES (11/02/2021 16:59 EDT) HPV other High Risk types, PCR Positive( A) Negative 11/15/2021 14:29 EDT [facility] Comment:E6 OR E7 mRNA from o ne or more types of HPV types 16,18,31,33,35,39,45,51,52,56,58,59,66, and 68 is detected by rn acls mediated amplification. High and intermediate risk HPV types are associated with most squamous intraepithelial lesions and cervical cancers. Papanicolaou smear specimen (specimen) CERVIX UTERI STRUCTURE / Unknown 11/02/2021 16:59 EDT 11/08/2021 11:35 EDT Leandro Gore MD MICROBIOLOGY - GENERAL ORDERABLE S Final Result Performing Organization Address [facility] Co de Phone Number [facility] [address] [place] [address] * PAP TEST (11/02/2021 16:59 EDT) Specimens A. Cervix and/or Endocervix , ThinPrep Imaging System with Manual Evaluation 11/15/2021 14:29 EDT [facility] Specimen Adequacy Satisfactory for Evaluation - transformation zone component present 11/15/2021 14:29 EDT [facility] General Categorization Negative for intraepithelial lesion or malignancy 11/15/2021 14:29 EDT [facility] Attestation . 11/15/2021 14:29 T [facility] at 1429 Clinical History See below 11/16/19 14:29 EDT [facility] HPV The result for the Human Papillomavirus (HPV) Detection-High Risk Types is Positive . E6 OR E7 mRNA from one or more types of HPV types 16,18,31,33,35,39 ,45,51,52,56,58,5 9,66, and 68 is detected by rn acls mediated amplification. High and intermediate risk HPV types are associated with most squamous intraepithelial lesions and cervical cancers. Testing was performed on specimen [id number] and was resulted on 11/10/2021 0944 EDT by ANDRES, LAB INSTRUMENT RESULTS IN 11/15/2021 14:29 EDT [facility] Genotyping 16 & 18/45 The results for the HPV Genotypes 16 and 18/45 are Negative for the HPV16 RNA and Negative for the HPV18/45 RNA (HPV18/45). Testing was performed on specimen [id number] and was resulted on 11/15/2021 1425 EDT by ANDRES, LAB INSTRUMENT RESULTS IN 11/15/2021 14:29 EDT [facility] Performing Lab [facility] 11/15/2021 14:29 T [facility] Scanned Images 11/15/2021 14:29 T [facility] Papanicolaou smear specimen (specimen) CERVIX UTERI STRUCTURE / Unknown 11/02/2021 16:59 EDT 11/05/2021 15:16 EDT us Leandro Gore MD PATHOLOGY ORDERABLES Final Resul t [facility] [address] [place] [address] documented in this encounter Visit Diagnoses Diagnosis Encounter for gynecological examination (general) (routine) without abnormal findings documented in this encounter Care Teams Doors Prefitter Relationship Specialty Start Date End Date Gricelda Roth NP [address] [place] [phone] PCP - General 09/08/12 documented as of this encounter
--- OUTSIDE RECORDS SUMMARY | 2024-04-30 12:15 | XMS_ITS | Encounter Summary ---
Author Organization [facility] [place] [address] Care Team Providers Care Detacker Name Role Phone Geovani Harden [facility] Primary Care Provider [phone] Reason for Referral * Consultation (Routine) - Closed Specialty Diagnoses / Procedures Referred By Jessica romero Referred To Contact Dermatology Diagnoses Nevus, atypical Screening for skin cancer Sherrie Larson APRN [address] [place] [address] [facility] Dermatology [address] [place] [phone] Referral ID Status Reason Start Date Expiration Date V isits Requested Visits Authorized [id number] Closed Consult, Test & Treat PCP Updated and/or Approved 09/03/2022 09/03/2023 6 6 Encounter Details Date Type Department Care Team (Latest Contact Info) Description 09/03/2022 Transcribe Orders eD Incoming Referrals [phone] Sherrie Larson APRN [address] [place], [place] [phone] Nevus, atypical; Screening for skin cancer Social [...] skin documented in this encounter Care Teams Detacker Relationship Specialty Start Date End Date Geovani Harden DNP [address] [place] [phone] PCP - General Family Medicine 09/03/22 documented as of this encounter
--- OUTSIDE RECORDS SUMMARY | 2024-04-30 12:15 | XMS_ITS | Encounter Summary ---
Author Organization [facility] Address [address] [place] [address] Care Team Providers Care Touch Up Painter Name Role Phone Gricelda Roth CUSTOMER ACCOUNTS ADVISOR Primary Care Provider [phone] Encounter Details Date Type Department Care Team (Latest Contact Info) Description 12/11/2022 Lab Requisition [facility] Pathology & Laboratory Medicine - [address] [address] Leandro Gore MD [address] [place] [address] [address] [place], [place] [phone] Encounter for screening for human papillomavirus (HPV); [...] Risk types, PCR Negative Negative 12/20/2022 15:19 [facility] Comment:No E6 or E7 mRNA is detected from HPV types 16,18,31,33,35,39,45,51,52,56,58,59,66, and 68 by advertising agency manager mediated amplification. Papanicolaou smear specimen (specimen) CERVIX UTERI STRUCTURE / Unknown 12/11/2022 16:54 EDT 12/18/2022 13:01 EDT Leandro Gore MD MICROBIOLOGY - GENERAL ORDERABLE S Final Result [facility] [address] [place] [address] * PAP TEST (12/11/2022 16:54 EDT) Specimens A. Cervix and/or Endocervix , ThinPrep Imaging System with Manual Evaluation 12/20/2022 15:19 [facility] Specimen Adequacy Satisfactory for Evaluation - transformation zone component present 12/20/2022 15:19 [facility] General Categorization Negative for intraepithelial lesion or malignancy 12/20/2022 15:19 [facility] Attestation . 12/20/2022 15:19 [facility] at 1519 Clinical History SEE BELOW 12/21/19 23 15:19 [facility] HPV The result for the Human Papillomavirus (HPV) Detection-High Risk Types is Negative. No E6 or E7 mRNA is detected from HPV types 16,18,31,33,35,39 ,45,51,52,56,58,5 9,66, and 68 by advertising agency manager mediated amplification.Janie ting was performed on specimen [id number] and was resulted on 12/20/2022 1519 EDT by ANDRES, LAB INSTRUMENT RESULTS IN 12/20/2022 15:19 [facility] Performing Lab [facility] 12/20/2022 15:19 [facility] Scanned Images 12/20/2022 15:19 [facility] Papanicolaou smear specimen (specimen) CERVIX UTERI STRUCTURE / Unknown 12/11/2022 16:54 EDT 12/13/2022 11:13 EDT us Leandro Gore MD PATHOLOGY ORDERABLES Final Resul t [facility] [address] [place] [address] documented in this encounter Visit Diagnoses Diagnosis Encounter for screening for human papillomavirus (HPV) Special screening examination for human papillomavirus (HPV) Cervical high risk human papillomavirus (HPV) DNA test positive Encounter for gynecological examination (general) (routine) without abnormal findings documented in this encounter Care Teams Touch Up Painter Relationship Specialty Start Date End Date Gricelda Roth CUSTOMER ACCOUNTS ADVISOR [address] [place] [phone] PCP - General 09/08/12 documented as of this encounter
--- OUTSIDE RECORDS SUMMARY | 2024-04-30 12:15 | XMS_ITS | Encounter Summary ---
Author Organization [facility] Address [address] [place] [address] Care Team Providers Care Director Of Reservations Name Role Phone Unavailable Primary Care Provider Unavailabl e Encounter Details Date Type Department Care Team (Late st Contact Info) Description 06/25/2010 Results Only [facility] - [facility] ([facility]) [address] [place], [place] [id number] Gordy Gore MD [address] [place] [address] [address] [place] [address] Social History Tobacco Use Types [...] ? TRUDI SMITH ? Accession #: ? [id number] ? : ? 1980 (Age: 29) ??F [...] of Report ? JAMES KUMAR 06/25/2010 06/26/2010 us Gordy Gore MD PATHOLOGY ORDERABLES Final Resul t JAMES KUMAR [address] [place] [address] documented in this encounter Visit Diagnoses Not on filedocumented in this encounter
--- OUTSIDE RECORDS SUMMARY | 2024-04-30 12:15 | XMS_ITS | Referral Summary ---
Author Organization [facility] Address [address] [place] [address] Care Team Providers Care Senior Database Engineer Name Role Phone Ira Gricelda Puma TECHNICAL CONSULTANT Primary Care Provider [phone] Encounters Date Type Department Care Team Description 03/05/2024 Lab Requisition [facility] Pathology & Laboratory [address] [address] Outr Resulting Lab, Provider 03/05/2024 Lab Requisition [facility] Pathology & Laboratory [address] [address] Outr Resulting Lab, Provider from Last 3 [...] Antibodies <2.5 <5.0 U/mL 03/08/2024 9:37 EDT [facility] Blood VENOUS BLOOD / Unknown 03/05/2024 14:10 EDT 03/05/2024 21:50 EDT us Provider Outr Resulting Lab IMMUNOLOGY AND SEROL OGY ORDERABLES Final Result Performing Organization Address City/[facility]/ZIP Co de Phone Number [facility] [address] [place] [address] * HEPATITIS C AB W REFLEX TO HCV RNA BY PCR (03/05/2024 14:10 EDT) Hep C Antibody Negative Negative 03/05/2024 23:39 EDT [facility] Blood VENOUS BLOOD / Unknown 03/05/2024 14:10 EDT 03/05/2024 21:50 EDT us Provider Outr Resulting Lab CHEMISTRY & BLOOD GA S ORDERABLES Final Result Performing Organization Address [facility]/ZIP Co de Phone Number [facility] [address] [place] [address] * HEPATITIS B SURFACE ANTIGEN (03/05/2024 14:10 EDT) Hep B Surface Ag Negative Negative 03/05/2024 23:14 EDT [facility] Blood VENOUS BLOOD / Unknown 03/05/2024 14:10 EDT 03/05/2024 21:50 EDT us Provider Outr Resulting Lab CHEMISTRY & BLOOD GA S ORDERABLES Final Result Performing Organization Address [facility]/ZIP Co de Phone Number [facility] [address] [place] [address] * RHEUMATOID FACTOR (03/05/2024 14:10 EDT) Rheumatoid Factor <8.6 <12.0 IU/mL 03/05/2024 22:12 EDT [facility] Blood VENOUS BLOOD / Unknown 03/05/2024 14:10 EDT 03/05/2024 21:50 EDT us Provider Outr Resulting Lab CHEMISTRY & BLOOD GA S ORDERABLES Final Result [facility] [address] [place] [address] from Last 3 Months Care Teams Senior Database Engineer Relationship Specialty Start Date End Date Gricelda Roth NP [address] [place] [phone] PCP - General 09/08/12
--- OUTSIDE RECORDS SUMMARY | 2024-04-30 12:15 | XMS_ITS | Encounter Summary ---
Author Organization [facility] Address [address] [place] [address] Care Team Providers Care Inspector Assemblies And Installations Name Role Phone Unavailable Primary Care Provider Unavailabl e Encounter Details Date Type Department Care Team (Late st Contact Info) Description 10/01/2006 Results Only [facility] - Maple conversion [address] [place] [address] Gordy Gore MD [address] [place] [address] [address] [place] [address] Social History Tobacco Use Types [...] ? TRUDI SMITH ? Accession #: ? [id number] : ? 1980 (Age: 26) ??F ?Collect Date: ? 10/01/2006 Location: ? [facility] ? Receive Date: ? 10/03/2006 Provider: ?GORDY GORE MD Copy to: ? Specimen/Source: ?ThinPrep Pap Test, Cervix/Endocervix, processed on [employer] ThinPrep Imaging System, with manual evaluation Last [...] End of Report JAMES KUMAR 10/01/2006 10/03/2006 us Gordy Gore MD PATHOLOGY ORDERABLES Final Resul t JAMES KUMAR [address] [place] [address] documented in this encounter Visit Diagnoses Not on filedocumented in this encounter
--- OUTSIDE RECORDS SUMMARY | 2024-04-30 12:15 | XMS_ITS | Encounter Summary ---
Author Organization [facility] Address [address] [place] [address] Care Team Providers Care Master Rigger Name Role Phone Gricelda Roth MEDART OPERATOR Primary Care Provider [phone] Encounter Details Date Type Department Care Team (Late st Contact Info) Description 03/05/2024 Lab Requisition [facility] Pathology & Laboratory Medicine - [address] [address] Outr Resulting Lab, Provider Social History Tobacco [...] Procedure Name Priority Date/Time Associated Diagnosis Comments CCP ANTIBODIES Routine 03/05/2024 14:10 EDT RHEUMATOID FACTOR Routine 03/05/2024 14: 10 EDT documented in this encounter Results * RHEUMATOID FACTOR (03/05/2024 14:10 EDT) Rheumatoid Factor <8.6 <12.0 IU/mL 03/05/2024 22:12 EDT [facility] Blood VENOUS BLOOD / Unknown 03/05/2024 14:10 EDT 03/05/2024 21:50 EDT us Provider Outr Resulting Lab CHEMISTRY & BLOOD GA S ORDERABLES Final Result Performing Organization Address City/[facility]/ZIP Co de Phone Number [facility] [address] [place] [address] * CCP ANTIBODIES (03/05/2024 14:10 EDT) CCP Antibodies <2.5 <5.0 U/mL 03/08/2024 9:37 EDT [facility] Blood VENOUS BLOOD / Unknown 03/05/2024 14:10 EDT 03/05/2024 21:50 EDT us Provider Outr Resulting Lab IMMUNOLOGY AND SEROL OGY ORDERABLES Final Result Performing Organization Address [facility] Co de Phone Number [facility] [address] [place] [address] documented in this encounter Visit Diagnoses Not on filedocumented in this encounter Care Teams Master Rigger Relationship Specialty Start Date End Date Gricelda Roth, MEDART OPERATOR [address] [place] [phone] PCP - General 09/08/12 documented as of this encounter
--- OUTSIDE RECORDS SUMMARY | 2024-04-30 12:15 | XMS_ITS | Encounter Summary ---
Author Organization [facility] Address [address] [place] [address] Care Team Providers Care Ice Cream Vault Worker Name Role Phone Unavailable Primary Care Provider Unavailabl e Encounter Details Date Type Department Care Team (Late st Contact Info) Description 11/04/[address] [facility] - Maple conversion [address] [place] [address] Gordy Gore MD [address] [place] [address] [address] [place] [address] Social History Tobacco Use Types [...] ? TRUDI SMITH ? Accession #: ? [id number] : ? 1980 (Age: 27) ??F ?Collect Date: ? 11/04/2007 Location: ? [facility] ? Receive Date: ? 11/06/2007 Provider: ?GORDY GORE MD Copy to: ? Specimen/Source: ?ThinPrep Pap Test, Cervix/Endocervix, processed on [employer] ThinPrep Imaging System, with manual evaluation Last [...] Date: ??11/09/2007 15:55 End of Report [facility] 11/04/2007 11/06/2007 us Gordy Gore MD PATHOLOGY ORDERABLES Final Resul t [facility] [address] [place] [address] documented in this encounter Visit Diagnoses Not on filedocumented in this encounter
--- OUTSIDE RECORDS SUMMARY | 2024-04-30 12:15 | XMS_ITS | Encounter Summary ---
Author Organization [facility] Address [address] [place] [address] Care Team Providers Care Russian Language Professor Name Role Phone Gricelda Roth BATCH ATTENDANT Primary Care Provider Encounter Details Date Type Department Care Team (Late st Contact Info) Description 09/10/2012 Orders Only Non [facility] Tony Oconnor MD [address] [place] [phone] Social History Tobacco Use Types Packs/Day [...] on filedocumented in this encounter Care Teams Russian Language Professor Relationship Specialty Start Date End Date Gricelda Roth NP [address] [place] [phone] PCP - General 09/08/12 documented as of this encounter
--- OUTSIDE RECORDS SUMMARY | 2024-04-30 12:15 | XMS_ITS | Encounter Summary ---
Author Organization [facility] Address [address] [place] [address] Care Team Providers Care Shadowgraph Scale Operator Name Role Phone Gricelda Roth SUPERVISOR BODY ASSEMBLY Primary Care Provider [phone] Encounter Details Date Type Department Care Team (Late st Contact Info) Description 09/10/2012 Phlebotomy Only [address] [address] Factory Maintenance Technician, Outpatient Social History Tobacco Use Types Packs/Day [...] on filedocumented in this encounter Care Teams Shadowgraph Scale Operator Relationship Specialty Start Date End Date Gricelda Roth NP [address] [place] [phone] PCP - General 09/08/12 documented as of this encounter
--- OUTSIDE RECORDS SUMMARY | 2024-04-30 12:15 | XMS_ITS | Encounter Summary ---
Author Organization [facility] Address [address] [place] [address] Care Team Providers Care Calender Operator Name Role Phone Gricelda Roth CENTRAL MELT SPECIALIST Primary Care Provider [phone] Encounter Details Date Type Department Care Team (Late st Contact Info) Description 09/10/2012 Orders Only Non [facility] Tony Oconnor MD [address] [phone] UNDEFINED CODE (Primary Dx) Social History Tobacco [...] CARLOS Final Result [facility] [address] [place] [address] documented in this encounter Visit Diagnoses Diagnosis UNDEFINED CODE- Primary USED FOR CLEARING HOLD BILLS IN LYD[employer] EDITS WITHIN IDX documented in this encounter Care Teams Calender Operator Relationship Specialty Start Date End Date Gricelda Roth NP [address] [place] [phone] PCP - General 09/08/12 documented as of this encounter
--- OUTSIDE RECORDS SUMMARY | 2024-04-30 12:15 | XMS_ITS | Encounter Summary ---
Author Organization [facility] Address [address] [place] [address] Care Team Providers Care Logging Crew Supervisor Name Role Phone Unavailable Primary Care Provider Unavailabl e Encounter Details Date Type Department Care Team (Late st Contact Info) Description 07/16/2007 9:50 EST Hospital Encounter [facility] [address] [place] [address] Garland Vasuqez MD PhD Social History Tobacco Use Types [...]
--- OUTSIDE RECORDS SUMMARY | 2024-04-30 12:15 | XMS_ITS | Encounter Summary ---
Author Organization [facility] Address [address] [place] [address] Care Team Providers Care Land Acquisition Manager Name Role Phone Gricelda Roth LEGAL ADVISOR Primary Care Provider [phone] Reason for Visit * Reason Comments Infertility Encounter Details Date Type Department Care Team (Latest Contact Info) Description 09/10/2012 8:00 EDT Office Visit [facility] - [address] [address] Elsie Quiroz MD [address] [place] [phone] Infertility, female (Primary Dx) Discharge Disposition: [...] origin documented in this encounter Care Teams Land Acquisition Manager Relationship Specialty Start Date End Date Gricelda Roth NP [address] [place] [phone] PCP - General 09/08/12 documented as of this encounter
[2024-04-30 14:26] LABS: Abs Immature Grans 0.02 10^3/uL (0.0-0.06); Absolute Basophil Count 0.07 10^3/uL (0.0-0.2); Absolute Eosinophil Count 0.26 10^3/uL (0.0-0.7); Absolute Lymphocyte Count 3.14 10^3/uL (1.2-3.4); Absolute Monocyte Count 0.62 10^3/uL (0.1-0.8); Absolute Neutrophil Count 6.41 10^3/uL (1.2-6.7); Basophils % 0.7 %; Eosinophils % 2.5 %; HCT 37.4 % (36.0-46.0); HGB 11.7 g/dL (11.2-15.7); Immature Grans % 0.2 %; Lymphocytes % 29.8 %; MCH 25.9 pg (27.0-33.0); MCHC 31.3 % (32.0-36.0); MCV 83 fL (80-95); MPV 9.3 fL (8.0-11.0); Monocytes % 5.9 %; Neutrophils % 60.9 %; Platelet Count 521 10^3/uL (130-400); RBC 4.51 10^6/uL (3.93-5.22); RDW 15.9 % (11.7-14.6); RDW-SD 48.2 fL; WBC 10.52 10^3/uL (4.4-10.8)
[2024-04-30 14:38] LABS: Calculated LDL 117 mg/dL (<100); Cholesterol 192 mg/dL (<200); HDL Cholesterol 53 mg/dL (40-60); Triglyceride 111 mg/dL (<150)
== END 2024-04-30 12:14 | disposition home or self-care (01) ==
LOC: NCHCN 12:13
PROVIDERS: Visit Provider Nurse Practitioner Family
DX: Z13.220 Encounter for screening for lipoid disorders (principal); D72.829 Elevated white blood cell count, unspecified
CPT/HCPCS: 80061; 85025